=== PATIENT | female | born 1995 | race Caucasian/White ===

== ENCOUNTER 2023-02-04 11:43 | Emergency (ER) | payer OTHER, SELFPAY ==
[2023-02-04 11:47] VITALS: BP 111/70; PULSE 88; RESP 16; TEMP 37.3; O2SAT 98; BMI 28.1
[2023-02-04 12:11] LABS: Basophils Absolute Auto 0.1 10^3/uL (0.0-0.1); Basophils Percent Auto 0.6 % (0.2-2.0); Eosinophils Absolute Auto 0.2 10^3/uL (0.0-0.7); Eosinophils Percent Auto 1.7 % (0.9-7.0); Hematocrit 40.3 % (36.0-48.0); Hemoglobin 13.7 g/dL (12.0-16.0); Immature Granulocytes Abs Auto 0.03 10^3/uL (0.00-0.03); Immature Granulocytes Pct Auto 0.3 % (0.0-0.5); Lymphocytes Absolute Auto 2.3 10^3/uL (1.2-3.8); Lymphocytes Percent Auto 22.9 % (20.5-60.0); Mean Corpuscular Hemoglobin 31.8 pg (26.7-34.0); Mean Corpuscular Volume 93.5 fL (81.0-99.0); Mean Platelet Volume 9.4 fL (9.5-13.5); Monocytes Absolute Auto 0.6 10^3/uL (0.3-0.8); Monocytes Percent Auto 6.4 % (1.7-12.0); Neutrophils Absolute Auto 6.7 10^3/uL (1.4-6.5); Neutrophils Percent Auto 68.1 % (43.0-75.0); Platelet Count 286 10^3/uL (150-450); Red Blood Count 4.31 10^6/uL (4.20-5.40); Red Cell Distribution Width 11.8 % (11.0-15.0); White Blood Count 9.9 10^3/uL (4.0-11.0)
[2023-02-04] MEDS: MORPHINE SULFATE 2 MG/ML SYRINGE 1 MG IV ×2 (12:29→13:04)
[2023-02-04] MEDS: ONDANSETRON PF 4 MG/2 ML VIAL IV (12:30)
--- NOTE | 2023-02-04 12:33 | US_ITS ---
[address] [address] Patient Name: DENISE SMITH MRN: [id number] date: 1995 Sex: F Assigned Patient Location: ER Current Patient Location: ER Accession/Order Number: [id number] Exam Date: 02/04/2023 12:38 Report Date: 02/04/2023 13:28 At the request of: JOSHUA GUTHRIE Procedure: US OB transvaginal EXAMINATION: US OB transvaginal HISTORY: RLQ pain COMPARISON: No relevant comparison available. FINDINGS: Betancourt intrauterine gestation Gestational sac: 1.19 cm, 5 weeks 2 days CRL: 0.91 cm, 6 weeks and yolk sac: 2.7 mm Heart rate: 134 beats minute Uterus is normal, retroverted The right ovary measures 4.3 x 2.0 x 2.4 cm. Normal color and Doppler flow. Area of soft tissue echogenicity measuring 2.0 cm possibly a corpus luteal or functional cyst The left ovary measures 2.2 x 1.7 x 2.1 cm. Normal color and Doppler flow Clinical age: 7 weeks, 4 days EDV: 09/17/2023 Ultrasound age: 6 weeks 6 days Ultrasound LESTER: 09/24/2023 US/US OB transvaginal IMPRESSION: Viable betancourt intrauterine gestation measuring 6 weeks 6 days Electronically authenticated by: CRISTINO COOLEY Date: 02/04/2023 13:28
[2023-02-04 12:41] LABS: Alanine Aminotransferase 17 U/L (14-59); Albumin Globulin Ratio 1.1; Albumin Level 3.7 g/dL (3.4-5.0); Alkaline Phosphatase 73 U/L (46-116); Anion Gap 14.6; Aspartate Amino Transferase 11 U/L (15-37); BUN Creatinine Ratio 9.4; Bilirubin Total 0.5 mg/dL (0.2-1.0); Calcium 8.5 mg/dL (8.5-10.1); Carbon Dioxide 23.1 mmol/L (21.0-32.0); Chloride 102 mmol/L (98-107); Estimated GFR (African America >60 (>=60); Estimated GFR (Non-African Ame >60 (>=60); Globulin 3.5 g/dL; Glucose 95 mg/dL (74-106); Potassium 3.7 mmol/L (3.5-5.1); Sodium 136 mmol/L (136-145); Total Protein 7.2 g/dL (6.4-8.2)
--- NOTE | 2023-02-04 12:59 | ED.FEMALEGU1 ---
HPI - Female Genitourinary General Chief complaint: Urogenital-Female Stated complaint: ISSUES 7-8 WEEKS Time Seen by Provider: 02/04/23 11:53 Source: patient Mode of arrival: walk-in History of Present Illness HPI Narrative: The patient is a 27 years old female coming to the ER with a right lower quadrant pain associated with vaginal bleeding she just did a test almost 3 days ago and she has not been having her menstruation for the last 7 weeks, the patient has a 10 years old at home and that was her last that was normal vaginal She does have some nausea vomiting no other complaints As per the patient the vaginal bleeding was more than usual and that why she came to the ER Related Data Allergies Allergy/AdvReac Type Severity Reaction Status Date / Time No Known Drug Allergies Allergy Verified 02/04/23 11:52 Review of Systems ROS Status of ROS 10 or more systems reviewed and unremarkable except as noted in history and below Exam Narrative Exam Narrative: Nurses notes and vital signs reviewed and patient is not hypoxic. General: Well-appearing and in no apparent distress. Skin: Warm, dry, no pallor noted. No rash. Head: Normocephalic, atraumatic. Neck: Supple, non-tender. Eye: Pupils are equal, round and EOMI. No scleral icterus. Ears, Nose, Mouth, and Throat: TM are clear, no nasal mucosal hypertrophy. Oral mucosa is moist, no posterior oropharynx erythema, uvula is mid-line Cardiovascular: Regular Rate and Rhythm without murmur, gallop or rub. Respiratory: No accessory muscle use or respiratory distress. Lungs are clear to auscultation, no wheezing, rales or rhonchi Chest Wall: no tenderness Back: No midline thoracic or lumbar vertebral tenderness. No CVA tenderness Musculoskeletal: normal ROM, no calf or popliteal tenderness, no lower extremity edema/swelling GI: Abdomen is soft, non-distended. Normal bowel sounds. The right lower quadrant tenderness on the superficial palpation Neurological: A&O x4. No cranial nerve dysfunction observed. No truncal ataxia. Moves all extremities. Sensation intact. Psychiatric: Cooperative and interactive. Normal mood and affect. Constitutional Vital Signs, click to edit/add: Last Vital Signs Temp 99.2 F 02/04/23 11:47 Pulse 72 02/04/23 13:52 Resp 14 02/04/23 13:52 BP 115/70 02/04/23 13:52 Pulse Ox 98 02/04/23 13:52 O2 Del Method Room Air 02/04/23 13:52 Course Vital Signs Vital signs: Vital Signs Temperature 99.2 F 02/04/23 11:47 Pulse Rate 88 02/04/23 11:47 Respiratory Rate 16 02/04/23 11:47 Blood Pressure 111/70 02/04/23 11:47 Pulse Oximetry 98 02/04/23 11:47 Oxygen Delivery Method Room Air 02/04/23 11:47 Temperature 99.2 F 02/04/23 11:47 Pulse Rate 72 02/04/23 13:52 Respiratory Rate 14 02/04/23 13:52 Blood Pressure 115/70 02/04/23 13:52 Pulse Oximetry 98 02/04/23 13:52 Oxygen Delivery Method Room Air 02/04/23 13:52 MDM - Female Genitourinary MDM Narrative Medical decision making narrative: CBC and chemistry showed no acute significant pathology The patient ultrasound shows a right-sided ovarian cyst and the intrauterine that is 6 weeks which is correlating with the hCG results The patient ultrasound transvaginal and due to the patient to have more pain She was provided with morphine for the pain in the ER The patient on examination did not have positive McBurney I did explain to the patient that right now all the examination and her presentation is mostly secondary to the ovarian cyst and with the clinical exam and the blood work-up showing no signs of possible acute appendicitis the patient will not be exposed to radiation and she understand that but in case the pain continues in the next few hours the patient to come back to the ER The patient also to monitor her symptoms and in case of increasing bleeding she is to come back to the ER also avoid exertion and sexual encounters The patient is to follow up with primary care physician in next 2-3 days or to return to the emergency department should any of the signs or symptoms worsen or new symptoms develop. The patient agrees with the following Diagnosis and Treatment plan and the patient will be discharged home. Lab Data Labs: Lab Results 02/04/23 Range/Units 12:00 WBC 9.9 (4.0-11.0) 10^3/uL RBC 4.31 (4.20-5.40) 10^6/uL Hgb 13.7 (12.0-16.0) g/dL Hct 40.3 (36.0-48.0) % MCV 93.5 (81.0-99.0) fL MCH 31.8 (26.7-34.0) pg MCHC 34.0 (29.9-35.2) g/dL RDW 11.8 (11.0-15.0) % Plt Count 286 (150-450) 10^3/uL MPV 9.4 L (9.5-13.5) fL Neut % (Auto) 68.1 (43.0-75.0) % Lymph % (Auto) 22.9 (20.5-60.0) % Caldwell % (Auto) 6.4 (1.7-12.0) % Eos % (Auto) 1.7 (0.9-7.0) % Baso % (Auto) 0.6 (0.2-2.0) % Neut # (Auto) 6.7 H (1.4-6.5) 10^3/uL Lymph # (Auto) 2.3 (1.2-3.8) 10^3/uL Caldwell # (Auto) 0.6 (0.3-0.8) 10^3/uL Eos # (Auto) 0.2 (0.0-0.7) 10^3/uL Baso # (Auto) 0.1 (0.0-0.1) 10^3/uL Abs Immat Gran (auto) 0.03 (0.00-0.03) 10^3/uL Imm/Tot Granulo (auto) 0.3 (0.0-0.5) % Sodium 136 (136-145) mmol/L Potassium 3.7 (3.5-5.1) mmol/L Chloride 102 (98-107) mmol/L Carbon Dioxide 23.1 (21.0-32.0) mmol/L Anion Gap 14.6 BUN 6.0 L (7.0-18.0) mg/dL Creatinine 0.64 (0.55-1.02) mg/dL Est GFR ( Amer) >60 (>=60) Est GFR (Non-Af Amer) >60 (>=60) BUN/Creatinine Ratio 9.4 Glucose 95 (74-106) mg/dL Calcium 8.5 (8.5-10.1) mg/dL Total Bilirubin 0.5 (0.2-1.0) mg/dL AST 11 L (15-37) U/L ALT 17 (14-59) U/L Alkaline Phosphatase 73 (46-116) U/L Total Protein 7.2 (6.4-8.2) g/dL Albumin 3.7 (3.4-5.0) g/dL Globulin 3.5 g/dL Albumin/Globulin Ratio 1.1 HCG, Quant 98755 mIU/mL Blood Type O Positive Antibody Screen Negative Discharge Plan Discharge Chief Complaint: Urogenital-Female Clinical Impression: Vaginal bleeding during , Cyst of right ovary Patient Disposition: Home, Self-Care Time of Disposition Decision: 13:41 Condition: Good Mode of Transportation: Private Vehicle Instructions: Threatened Miscarriage (ED), Ovarian Cyst (ED) Stand Alone Forms: Portal Instructions Referrals: Physician,Non-Staff, MD [Primary Care Provider] - 1 week Discharge Date/Time: 02/04/23 13:50
[2023-02-04 13:22] LABS: HCG Quantitative 11446 mIU/mL
[2023-02-04 13:52] VITALS: BP 115/70; PULSE 72; RESP 14; O2SAT 98
== END 2023-02-04 13:50 | disposition home or self-care (01) ==
PROVIDERS: Emergency Provider Emergency Medicine
DX: O20.9 Hemorrhage in early pregnancy, unspecified (principal); O34.81 Maternal care for other abnormalities of pelvic organs, first trimester; N83.201 Unspecified ovarian cyst, right side; Z3A.01 Less than 8 weeks gestation of pregnancy
CPT/HCPCS: 36415; 76817; 80053; 84702; 84703; 85025; 86850; 86900; 86901; 96374; 96375; 96376; 99284

== ENCOUNTER 2024-09-27 15:12 | Emergency (ER) | payer OTHER, SELFPAY ==
[2024-09-27 15:16] VITALS: BP 131/88; PULSE 95; TEMP 37; O2SAT 98; BMI 29.2
--- NOTE | 2024-09-27 15:30 | ED.GENADUL1 ---
HPI HPI - General Adult General Chief complaint: Extremity Injury, Upper Stated complaint: BROKE FINGER TUESDAY, HAVING A LOT OF PAIN Time Seen by Provider: 09/27/24 15:16 Source: patient Mode of arrival: walk-in Limitations: no limitations History of Present Illness HPI narrative: 28-year-old female presents for left third finger pain. She broke it last week and has had an x-ray and has an orthopedist appointment in a few days. She has pain. She states she is , about 6 weeks and is scheduled to have an soon. The pain is moderate to severe. Related Data Previous Rx's ?Medication ?Instructions ?Recorded acetaminophen 300 mg-codeine 30 mg 1 tab PO Q6H PRN pain 5 days #20 09/27/24 tablet tabs Allergies Allergy/AdvReac Type Severity Reaction Status Date / Time No Known Drug Allergies Allergy Verified 09/27/24 15:16 Opioid HPI Opioid Management Most Recent Opioid Data: Last Pain Scale 5 Today, 15:16 Review of Systems ROS Narrative A ten point review of systems is negative except as noted above. PFSH PFSH Social History Little interest or pleasure in doing things: not at all Feeling down, depressed, or hopeless: not at all Exam Narrative Exam Narrative: Nurses note and vital signs reviewed and patient is not hypoxic. General: The patient appears well and in no apparent distress. Patient is resting comfortably on cart. Skin: Warm, dry, no pallor noted. There is no rash noted. Head: Normocephalic, atraumatic Eye: Normal conjunctiva, no drainage Ears, Nose, Mouth, and Throat: oral mucosa is moist. Nares patent. Cardiovascular: Regular Rate and Rhythm Respiratory: Patient is in no distress, no accessory muscle use Back: non-tender GI: Soft and nontender Musculoskeletal: Splint present on the left third finger. There is some swelling. Other fingers are nontender and have good range of motion Neurological: A&O, normal speech Psychiatric: Cooperative Constitutional Vital Signs, click to edit/add: Last Vital Signs Temp 98.6 F 09/27/24 15:16 Pulse 95 H 09/27/24 15:16 Resp 16 09/27/24 15:16 BP 131/88 09/27/24 15:16 Pulse Ox 98 09/27/24 15:16 O2 Del Method Room Air 09/27/24 15:16 Course Vital Signs Vital signs: Vital Signs Temperature 98.6 F 09/27/24 15:16 Pulse Rate 95 H 09/27/24 15:16 Respiratory Rate 16 09/27/24 15:16 Blood Pressure 131/88 09/27/24 15:16 Pulse Oximetry 98 09/27/24 15:16 Oxygen Delivery Method Room Air 09/27/24 15:16 Temperature 98.6 F 09/27/24 15:16 Pulse Rate 95 H 09/27/24 15:16 Respiratory Rate 16 09/27/24 15:16 Blood Pressure 131/88 09/27/24 15:16 Pulse Oximetry 98 09/27/24 15:16 Oxygen Delivery Method Room Air 09/27/24 15:16 Medical Decision Making MDM Narrative Medical decision making narrative: She was provided a prescription for Tylenol 3 and will follow-up with her orthopedist. Treatment diagnosis and follow-up were discussed with the patient. Differential Diagnosis Differential Diagnosis: Finger fracture, pain Discharge Plan Discharge Chief Complaint: Extremity Injury, Upper Clinical Impression: Finger fracture, left Patient Disposition: Home, Self-Care Time of Disposition Decision: 15:26 Condition: Good Mode of Transportation: Private Vehicle Prescriptions / Home Meds: New acetaminophen-codeine 300-30 mg tablet 1 tab PO Q6H PRN (Reason: pain) 5 Days Qty: 20 0RF Print Language: Albanian Instructions: Finger Fracture (ED) Additional Instructions: See your orthopedist at your appointment on Tuesday. Referrals: Physician,Non-Staff, MD [Primary Care Provider] - 1 week
== END 2024-09-27 15:40 | disposition home or self-care (01) ==
PROVIDERS: Emergency Provider Emergency Medicine
DX: O9A.211 Injury, poisoning and certain other consequences of external causes complicating pregnancy, first trimester (principal); S62.603A Fracture of unspecified phalanx of left middle finger, initial encounter for closed fracture; Z3A.01 Less than 8 weeks gestation of pregnancy; X58.XXXA Exposure to other specified factors, initial encounter
CPT/HCPCS: 99283

== ENCOUNTER 2025-01-18 20:49 | Emergency (ER) | payer OTHER, SELFPAY ==
--- OUTSIDE RECORDS SUMMARY | 2025-01-18 20:59 | XMS_ITS | CCD ---
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 Name Role Phone LEYDI SCALES~[phone] Unavailable Unavailable CHÁVEZ, BUDDHISM E Unavailable Unavailable CHÁVEZ, BUDDHISM E Unavailable Unavailable CHÁVEZ, BUDDHISM E Unavailable Unavailable JOSAFAT GUEVARA Unavailable Unavailable GHANSHYAM GALLO~[phone] Unavailable Jonelle vailable ARISTIDES BEAVERS Unavailable Unavailable ARISTIDES BEAVERS Unavailable Unavailable ARISTIDES BEAVERS Unavailable Unavailable DR TRINITY SPANGLER Consulting Unavailable REQUEST, NONE LISTED Primary Care Unavaila ble WINDY ESPINOZA Admitting Unavailable WINDY ESPINOZA Attending Unavailable WINDY ESPINOZA Consulting Unavailable CARLTON MERCADO Consulting Unavailable REQUEST, NONE LISTED Primary Care Unavaila ble WINDY ESPINOZA Attending Unavailable WINDY ESPINOZA Consulting Unavailable WINDY ESPINOZA Admitting Unavailable REQUEST, NONE LISTED Primary Care Unavaila ble WINDY ESPINOZA Admitting Unavailable WINDY ESPINOZA Attending Unavailable REQUEST, NONE LISTED Primary Care Unavaila ble WINDY ESPINOZA Admitting Unavailable WINDY ESPINOZA Attending Unavailable WINDY ESPINOZA Consulting Unavailable REQUEST, NONE LISTED Primary Care Unavaila ble YASIR, DR CRISTINO Andre Consulting Unavailable WINDY ESPINOZA Attending Unavailable WINDY ESPINOZA Admitting Unavailable WINDY ESPINOZA Consulting Unavailable DANIEL ESPINOZA Consulting Unavailable NO FAMILY, PHYSICIAN Primary Care Provider Unava ilable JOSIANE Mendoza Emergency Provider Junior Araujo Attending Unavailable Junior Araujo Admitting Unavailable NO FAMILY, PHYSICIAN Primary Care Unavailable Unavailable Primary Care Provider UnavailAristides Sims DO Unavailable [phone] MELBA NAVARRETE Attending Unavailable MELBA NAVARRETE Referring Unavailable POCCRISTINO HOBBS Referring Unavailable POCCRISTINO HOBBS Attending Unavailable ARISTIDES GOULD Referring Unavailable JENNIFER LONGORIA Attending Unavailable CRISTINO ROLON Referring Unavailable CRISTINO ROLON Referring Unavailable MARILYNN ALEJANDRE Attending Unavailable CRISTINO ROLON Attending Unavailable CRISTINO ROLON Referring Unavailable Allergies Allergy Classification Reported Allergen(s) Allergy Type Date of Onset Reaction(s) Facility peanut allergenic extract (1 source) peanut allergenic extract Drug Allergy [facility] Repository (2 sources) Adhesive Tape; Translations: [ADHESIVE TAPE] Propensity to adverse reactions to drug (disorder) 7 [facility] Repository (2 sources) peanut allergenic extract; Translations: [PEANUT] Drug Allergy 7 [facility] Repository Medications Current Medications Medication Drug Class(es) Dates Sig (Normalized) Sig (Original) azithromycin 250 mg oral tablet (2 sources) Macrolide Antimicrobial Start: 4 End: 4 take 2 tablets by mouth once daily, then take 1 tablet by mouth once daily azithromycin (Zithromax) 250 MG tablet Indications: Bronchitis Take 2 tablets (500 mg) by mouth Daily for 1 day, THEN 1 tablet (250 mg) Daily for 4 days. 6 tablet 03/08/2024 03/12/2024 Active methylPREDNISolone (2 sources) Corticosteroid Start: 4 End: 4 methylPREDNISolone (Medrol Dospak) 4 MG tablets Indications: Bronchitis Follow schedule on package instructions 21 tablet 03/08/2024 03/15/2024 Active Mehan (No Known Home Meds) (1 source) Start: 3 Mehan (No Known Home Meds) Active May 02, 2022 12:00am Completed/Discontinued Medications Medication Drug Class(es) Dates Sig (Normalized) Sig (Original) amoxicillin 500 mg oral capsule (1 source) Penicillin-class Antibacterial Start: 09-09-2019 End: 05-02-2022 take 500 mg by mouth twice daily Amoxicillin Discontinued 500 MG PO Twice daily 21 01September 08, 2019 11:00pm May 02, 2022 1:51pm cephalexin 750 mg oral capsule (1 source) Cephalosporin Antibacterial Start: 10-26-2020 End: 05-02-2022 take 1 capsule by mouth three times daily Cephalexin (Keflex) 750 mg Capsule Discontinued 750 MG PO Three times daily 22 10October 25, 2020 11:00pm May 02, 2022 1:51pm Etonogestrel (Nexplanon) 68 mg Implant (1 source) Start: 09-09-2019 End: 05-02-2022 Etonogestrel (Nexplanon) 68 mg Implant Discontinued 1 IMPLANT SUBDERMAL Once September 08, 2019 11:00pm May 02, 2022 1:51pm 2 ml ketorolac tromethamine 30 mg/ml cartridge (2 sources) Nonsteroidal Anti-inflammatory Drug, Cyclooxygenase Inhibitor Start: 09-24-2024 End: 09-24-2024 ketorolac (Toradol) injection 60 mg Problems Active Problems Problem Classification Problem Date Documented Da te Episodic/Chronic Abdominal pain (9 sources) Abdominal pain; Translations: [Right lower quadrant pain] Onset: 10-27-2016 Episodic Acquired foot deformities (15 sources) Hallux valgus (acquired), left foot; Translations: [Acquired hallux valgus] Onset: 04-09-2020 Chronic Acquired foot deformities (5 sources) Hallux valgus (acquired), right foot; Translations: [HALLUX VALGUS ACQUIRED RIGHT FOOT] Onset: 02-04-2020 Chronic Chronic kidney disease (2 sources) Chronic kidney disease Onset: 06-01-2017 Chronic obstructive pulmonary disease and bronchiectasis (2 sources) Bronchitis; Translations: [Bronchitis, not specified as acute or chronic] 03-08-2024 Episodic Fracture of upper limb (20 sources) Closed fracture of middle phalanx of middle finger; Translations: [Nondisplaced fracture of middle phalanx of left middle finger, initial encounter for closed fracture] Onset: 11-23-2024 09-25-2024 Episodic Menstrual disorders (10 sources) Irregular periods; Translations: [Irregular menstruation, unspecified] Onset: 03-08-2024 03-08-2024 Chronic Mood disorders (10 sources) Dysthymia; Translations: [Dysthymic disorder] Onset: 03-08-2024 03-08-2024 Chronic Other connective tissue disease (8 sources) Pain of left hand; Translations: [Pain in left hand] Onset: 11-23-2024 11-12-2024 Episodic Other connective tissue disease (2 sources) Pain in finger of left hand; Translations: [Pain in left finger(s)] 12-14-2024 Episodic Other injuries and conditions due to external causes (2 sources) Injury of left hand; Translations: [Unspecified injury of left wrist, hand and finger(s), initial encounter] 09-24-2024 Episodic Other nervous system disorders (1 source) Other chronic pain; Translations: [Other chronic pain] Onset: 06-01-2017 Chronic Other upper respiratory infections (3 sources) Acute upper respiratory infection, unspecified; Translations: [Pharyngitis] Onset: 02-13-2017 03-08-2024 Episodic Spontaneous (1 source) Incomplete spontaneous without complication; Translations: [Incomplete spontaneous without complication] Onset: 06-08-2023 Episodic Substance-related disorders (1 source) Nicotine dependence, cigarettes, uncomplicated; Translations: [NICOTINE DEPEND CIGARETTES UNCOMP] Onset: 04-17-2020 Chronic Unclassified (2 sources) Abdominal Pain / 1() Onset: 10-27-2016 Unclassified (2 sources) Unknown / UNK(Unknown) Onset: 10-27-2016 Unclassified (2 sources) Right lower quadrant pain / R10.31(ICD-10) Onset: 02-27-2017 Unclassified (1 source) Hematuria / 07213() Onset: 04-25-2017 Unclassified (1 source) Cough / 28() Onset: 02-13-2017 Unclassified (1 source) Right upper quadrant pain / R10.11(ICD-10) Onset: 10-27-2016 Unclassified (1 source) Unspecified ovarian cyst, left side / N83.202(ICD-10) Onset: 02-27-2017 Unclassified (1 source) Ear Pain / 89372() Onset: 02-13-2017 Unclassified (1 source) Congestion / 73952() Onset: 02-13-2017 Unclassified (1 source) Acute upper respiratory infection, unspecified / J06.9(ICD-10) Onset: 02-13-2017 Unclassified (1 source) Back Pain / 12() Onset: 02-27-2017 Unclassified (1 source) Encounter for screening for COVID-19; Translations: [Encounter for screening for COVID-19] Onset: 04-09-2020 Unclassified (2 sources) Injury of left hand 09-25-2024 Urinary tract infections (2 sources) Urinary tract infections; Translations: [Urinary tract infection, site not specified] Onset: 10-27-2016 Past or Other Problems Problem Classification Problem Date Documented Date Episodic/Chronic Disorders of teeth and jaw (11 sources) Toothache; Translations: [Other specified disorders of teeth and supporting structures] Onset: 03-08-2024 09-09-2019 Episodic Genitourinary symptoms and ill-defined conditions (1 source) Blood in urine; Translations: [Hematuria] Onset: 04-25-2017 Episodic Hemorrhage during ; abruptio placenta; placenta previa (11 sources) Bleeding from female genital tract during ; Translations: [Antepartum hemorrhage, unspecified, unspecified trimester] Onset: 03-08-2024 05-02-2022 Episodic Immunizations and screening for infectious disease (1 source) Contact with and (suspected) exposure to other viral communicable diseases; Translations: [CONTCT EXPS OTH VIRL COMMUNICABL DZ] Onset: 02-04-2020 Episodic Other diseases of veins and lymphatics (10 sources) Peripheral venous insufficiency; Translations: [Venous insufficiency (chronic) (peripheral)] Onset: 03-08-2024 03-08-2024 Episodic Other lower respiratory disease (1 source) Cough; Translations: [Cough] Onset: 02-13-2017 Episodic Residual codes; unclassified (10 sources) Insomnia; Translations: [Insomnia, unspecified] Onset: 03-08-2024 03-08-2024 Episodic Spondylosis; intervertebral disc disorders; other back problems (1 source) Backache; Translations: [Back Pain] Onset: 02-27-2017 Episodic Superficial injury; contusion (11 sources) Contusion of forearm; Translations: [Contusion of right forearm, initial encounter] Onset: 03-08-2024 11-17-2019 Episodic Unclassified (1 source) Unspecified ovarian cyst, left side; Translations: [Unspecified ovarian cyst, left side] Onset: 02-27-2017 Unclassified (1 source) Congestion; Translations: [Congestion] Onset: 02-13-2017 Unclassified (1 source) Ear Pain; Translations: [Ear Pain] Onset: 02-13-2017 Unclassified (1 source) right abdominal pain Onset: 10-27-2016 Results Test Name Value Interpretation Reference Range Facility XR Finger - left 2 [facility] 0 12-17-2024 Imaging Result: X-rays of the left middle finger , a total of 3 views with permanent images saved to the record, show the malunion at the base of the middle phalanx. There is collapse causing the persistent ulnar angulation at the PIP. No new or interval changes noted. [facility] XR Finger - left 2 [facility] 0 12-14-2024 Radiology Study observation (narrative) [facility] XR Hand - left 3 [facility] XR HAND 3+ VIEWS LEF T HISTORY: Injury to the left hand 3rd digit TECHNIQUE: Three views COMPARISON: None. FINDINGS: Soft tissue swelling is present, along dorsum of the left hand extending into the fingers mainly of the 3rd finger. The carpal bone alignment is anatomic; no intercarpal diastasis. No fracture. No osteonecrosis. No foreign body. Impression: Extensive soft tissue swelling of the left hand extending into the left 3rd finger. No acute underlying osseous/articular abnormality identified. Interpreted by: Electronically signed by JOE HENRY MD at 25-Sep-2024 12:37:41 AM [facility] Joe Henry MD - 09/25/2024 XR HAND 3+ VIEWS LEFT HISTORY: Injury to the left hand 3rd digit TECHNIQUE: Three views COMPARISON: None. FINDINGS: Soft tissue swelling is present, along dorsum of the left hand extending into the fingers mainly of the 3rd finger. The carpal bone alignment is anatomic; no intercarpal diastasis. No fracture. No osteonecrosis. No foreign body. Impression: Extensive soft tissue swelling of the left hand extending into the left 3rd finger. No acute underlying osseous/articular abnormality identified. Interpreted by: Electronically signed by JOE HENRY MD at 25-Sep-2024 12:37:41 AM [facility] XR Hand - left 3 ViewsOrdere d By: Joe Henry on 09-25-2024 [facility] Work Phone: HCG ( test) Ql (U)o n 09-24-2024 Interpretation and review of laboratory results Abnormal [facility] Preg Test, Ur Positive Negative [facility] No Panel Informationon 09-24 Umm Sharma MA 09/26/2024 6:54 PM Splint Application Date/Time: 09/24/2024 7:03 PM Performed by: Umm Sharma MA Authorized by: Melba Navarrete NP Consent: Consent obtained: Verbal Consent given by: Patient Risks discussed: Discoloration, numbness, pain and swelling [place] protocol: Patient identity confirmed: Verbally with patient Pre-procedure details: Distal perfusion: distal pulses strong Procedure details: Location: Finger Finger location: L long finger Supplies: Aluminum splint Post-procedure details: Distal perfusion: distal pulses strong Procedure completion: Tolerated well, no immediate complications Comments: (1) 2inch rebecca wrapped used [facility] XR HAND 3+ VIEWS LEFTon 09-03 XR HAND 3+ VIEWS LEFT XR HAND 3+ VIEWS L EFT HISTORY: Injury to the left hand 3rd digit TECHNIQUE: Three views COMPARISON: None. FINDINGS: Soft tissue swelling is present, along dorsum of the left hand extending into the fingers mainly of the 3rd finger. The carpal bone alignment is anatomic; no intercarpal diastasis. No fracture. No osteonecrosis. No foreign body. Impression: Extensive soft tissue swelling of the left hand extending into the left 3rd finger. No acute underlying osseous/articular abnormality identified. Interpreted by: Electronically signed by JOE HENRY MD at 25-Sep-2024 12:37:41 AM [facility] Normal Not Available XR Hand - left 3 [facility] Radiology Study observation (narrative) [facility] Laboratory - Microbiology an d Antimicrobial susceptibilityon 03-08-2024 SARS-CoV-2 (COVID-19) RNA MARCELINO+probe Ql (Unsp spec) Negative [facility] No Panel Informationon 03-08 FLU A Negative [facility] FLU B Negative [facility] Interpretation and review of laboratory results Normal [facility] S. pyogenes DNA MARCELINO+probe No m (Unsp spec)Ordered By: Marin Sharma on 03-08-2024 Interpretation and review of laboratory results Normal [facility] RESULT Negative Negative [facility] Basic Metabolic Panelon 03-0 Anion gap [Moles/Vol] 11.5 mmol/L Normal 6.0-15.0 [facility] Comment on above: Performed By: #### L IPASE, CBC, HEPATIC, HCGQNT, BMP #### [facility] [address] Calcium [Mass/Vol] 9.0 mg/dL Normal 8.6-10.3 [facility] Comment on above: Performed By: #### L IPASE, CBC, HEPATIC, HCGQNT, BMP #### [facility] [address] [place] [address] [place] Chloride [Moles/Vol] 106 mmol/L Normal 98-107 [facility] Comment on above: Performed By: #### L IPASE, CBC, HEPATIC, HCGQNT, BMP #### [facility] [address] CO2 [Moles/Vol] 23.2 mmol/L Normal 21.0-31.0 [facility] Comment on above: Performed By: #### L IPASE, CBC, HEPATIC, HCGQNT, BMP #### [facility] [address] Creatinine [Mass/Vol] 0.67 mg/dL Normal 0.60-1.20 [facility] Comment on above: Performed By: #### L IPASE, CBC, HEPATIC, HCGQNT, BMP #### [facility] [address] [place] [address] [place] Creatinine Clr Calc Pharmacy 124.16 [facility] Comment on above: Performed By: #### L IPASE, CBC, HEPATIC, HCGQNT, BMP #### [place] [address] [place] GFR/1.73 sq M.predicted MDRD (S/P/Bld) [Vol rate/Area] mL/min/{1.73_m2} [facility] Comment on above: Performed By: #### L IPASE, CBC, HEPATIC, HCGQNT, BMP #### [facility] [address] Glucose [Mass/Vol] 93 mg/dL Normal 70-100 [facility] Comment on above: Result Comment: [facility] Glucose Reference Range is dependent on time and content of last meal. Glucose of more than 200 mg/dL in a nonstressed, ambulatory subject supports the diagnosis of Diabetes Mellitus. ADA recommended reference range Performed By: #### L IPASE, CBC, HEPATIC, HCGQNT, BMP #### [facility] [address] [place] [address] Potassium [Moles/Vol] 3.7 mmol/L Normal 3.5-5.1 [facility] Comment on above: Performed By: #### L IPASE, CBC, HEPATIC, HCGQNT, BMP #### [facility] [address] Sodium [Moles/Vol] 137 mmol/L Normal 136-145 [facility] Comment on above: Performed By: #### L IPASE, CBC, HEPATIC, HCGQNT, BMP #### [facility] [address] [place] [address] Urea nitrogen [Mass/Vol] 4 mg/dL Low 7-25 [facility] Comment on above: Performed By: #### L IPASE, CBC, HEPATIC, HCGQNT, BMP #### [address] abdomen pelvis w conon CT abdomen pelvis w con [facility] Main [place] [address] [place] [address] CT Scan Report Signed Patient: Gina Burton MR#: [id number] 74 : 1995 Acct:[id number] Age/Sex: 27 / F ADM Date: 06/08/23 Loc: ER Room: Type: [facility] ER Attending Dr: Copies to: Junior Araujo DO Ordering Provider: Junior Araujo DO Date of Service: 06/08/23 CT/CT abdomen pelvis w con: Abdominal Pain CT Abdomen and Pelvis withcontrast TECHNIQUE: Axial imaging with 2-D reconstruction.90 cc of Isovue-300. The CT exam was performed using one or more the following dose reduction techniques: Automated exposure control, adjustment of the MA and/or Kv according to patient size, or use of the iterative reconstruction technique. COMPARISON: Pelvic ultrasound 06/08/2023 History: Severe abdominal pain. Nausea. LIMITATIONS: None LOWER THORAX Unremarkable LIVER: Unremarkable GALLBLADDER: No gallbladder abnormality identified. BILE DUCTS: No dilatation SPLEEN: Unremarkable PANCREAS: Unremarkable ADRENAL GLANDS: Unremarkable KIDNEYS:Right renal scarring. Small right renal cyst. Small right renal calcification. No hydronephrosis. AORTA: No abdominal aortic aneurysm identified. RETROPERITONEUM: No significant retroperitoneal abnormalities identified. MESENTERY:Unremarkable SMALL BOWEL: The small bowel loops are nondistended. APPENDIX: The appendix is normal. COLON: Unremarkable URINARY BLADDER: Urinary bladder is unremarkable. REPRODUCTIVE SYSTEM: Enlarged uterus deviated to the left. No pelvic mass seen. Adjacent adnexal structures. No free fluid. PNEUMOPERITONEUM: None PERITONEAL FLUID:None BONY STRUCTURES: Unremarkable ABDOMINAL WALL: Unremarkable CT/CT abdomen pelvis w con IMPRESSION: Prominent uterus. No visible pelvic mass or fluid. No hematoma. Impression dictated by: Guillermo Jefferson M.D.06/08/2023 2:49 PM Dictation Location: [place] [address] Transcribed By: [facility] 06/08/23 1449 Dictated By: Guillermo Jefferson DO 06/08/23 1437 Signed By: 06/08/23 1449 Normal [facility] Complete Blood Count Auto Di ffon 06-08-2023 Basophils (Bld) [#/Vol] 0.1 10*3/uL Normal 0.0-0.2 [facility] Comment on above: Result Comment: PERF ORMED BY: [place] [address] PATHOLOGIST HAND WEAVER ALYX HURD M.D. Performed By: #### L IPASE, CBC, HEPATIC, HCGQNT, BMP #### [facility] [address] [place] [address] Basophils/100 WBC (Bld) 0.4 % Normal . F [facility] Comment on above: Performed By: #### L IPASE, CBC, HEPATIC, HCGQNT, BMP #### [facility] [address] Eosinophils (Bld) [#/Vol] 0.1 10*3/uL Normal 0.0-0.45 [facility] Comment on above: Performed By: #### L IPASE, CBC, HEPATIC, HCGQNT, BMP #### [address] Eosinophils/100 WBC (Bld) 0.7 % Normal . [facility] Comment on above: Performed By: #### L IPASE, CBC, HEPATIC, HCGQNT, BMP #### [address] Erythrocyte distribution width (RBC) [Ratio] 13.2 % Normal 11.9-15.3 [facility] Comment on above: Performed By: #### L IPASE, CBC, HEPATIC, HCGQNT, BMP #### [address] Hematocrit (Bld) [Volume fraction] 40.9 % Normal 34.0-46.4 [facility] Comment on above: Performed By: #### L IPASE, CBC, HEPATIC, HCGQNT, BMP #### [address] Hemoglobin (Bld) [Mass/Vol] 13.9 g/dL Normal 11.8-15.4 [facility] Comment on above: Performed By: #### L IPASE, CBC, HEPATIC, HCGQNT, BMP #### [address] Lymphocytes (Bld) [#/Vol] 1.8 10*3/uL Normal 1.00-4.8 [facility] Comment on above: Performed By: #### L IPASE, CBC, HEPATIC, HCGQNT, BMP #### [address] Lymphocytes/100 WBC (Bld) 13.9 % Normal . [facility] Comment on above: Performed By: #### L IPASE, CBC, HEPATIC, HCGQNT, BMP #### [address] MCH (RBC) [Entitic mass] 31.5 pg Normal 24.7-34.3 [facility] Comment on above: Performed By: #### L IPASE, CBC, HEPATIC, HCGQNT, BMP #### [place] [id number] [place] MCV (RBC) [Entitic vol] 93.0 fL Normal 80-100 F [facility] Comment on above: Performed By: #### L IPASE, CBC, HEPATIC, HCGQNT, BMP #### [address] Mean Corpuscular HGB Conc 33.9 g/dL Normal 32.0-35.0 [facility] Comment on above: Performed By: #### L IPASE, CBC, HEPATIC, HCGQNT, BMP #### [address] Monocytes (Bld) [#/Vol] 0.7 10*3/uL Normal 0.0-0.8 [facility] Comment on above: Performed By: #### L IPASE, CBC, HEPATIC, HCGQNT, BMP #### [address] Monocytes/100 WBC (Bld) 18.94 % Normal 0.00-20.00 F [facility] Comment on above: Performed By: #### L IPASE, CBC, HEPATIC, HCGQNT, BMP #### [address] Monocytes/100 WBC (Bld) 5.7 % Normal . [facility] Comment on above: Performed By: #### L IPASE, CBC, HEPATIC, HCGQNT, BMP #### [place] [address] [place] Neutrophils (Bld) [#/Vol] 10.3 10*3/uL High 1.8-7.7 [facility] Comment on above: Performed By: #### L IPASE, CBC, HEPATIC, HCGQNT, BMP #### [address] Neutrophils/100 WBC (Bld) 79.3 % Normal . [facility] Comment on above: Performed By: #### L IPASE, CBC, HEPATIC, HCGQNT, BMP #### [place] [address] [place] NRBC% 0.0 /100{WBC} Normal 0-0.5 [facility] Comment on above: Performed By: #### L IPASE, CBC, HEPATIC, HCGQNT, BMP #### [address] Platelet mean volume (Bld) [Entitic vol] 7.9 fL Normal 6.3-10.7 [facility] Comment on above: Performed By: #### L IPASE, CBC, HEPATIC, HCGQNT, BMP #### [address] Platelets (Bld) [#/Vol] 252 10*3/uL Normal 150-450 [facility] Comment on above: Performed By: #### L IPASE, CBC, HEPATIC, HCGQNT, BMP #### [address] RBC (Bld) [#/Vol] 4.40 10*6/uL Normal 3.60-5.00 [facility] Comment on above: Performed By: #### L IPASE, CBC, HEPATIC, HCGQNT, BMP #### [address] WBC (Bld) [#/Vol] 13.0 10*3/uL High 3.8-11.6 [facility] Comment on above: Performed By: #### L IPASE, CBC, HEPATIC, HCGQNT, BMP #### [address] Dipstick and Microscopicon 0 06-08-2023 Appearance (U) Turbid Critically abnormal Clear [facility] Comment on above: Order Comment: Name Collection Type:: Clean-Voided Midstream Performed By: #### A AZUL CHOUDHARY UHCG #### [address] Bacteria,Urine 2+ High None Seen [facility] Comment on above: Order Comment: Name Collection Type:: Clean-Voided Midstream Performed By: #### A AZUL CHOUDHARY UHCG #### [facility] [address] [place] [address] [place] Bilirubin,Urine Negative Normal Negative [facility] Comment on above: Order Comment: Name Collection Type:: Clean-Voided Midstream Performed By: #### A DDONUAPLUS, CUU, UHCG #### [facility] [address] Color (U) Red Critically abnormal Yellow [facility] Comment on above: Order Comment: Name Collection Type:: Clean-Voided Midstream Performed By: #### A DDONUAPLUS, CUU, UHCG #### [facility] [address] [place] [address] Glucose Ql (U) Normal Normal Normal [facility] Comment on above: Order Comment: Name Collection Type:: Clean-Voided Midstream Performed By: #### A DDONUAPLUS, CUU, UHCG #### [facility] [address] [place] [address] [place] Hyaline Casts,Urine None Seen Normal 0-8 [facility] Comment on above: Order Comment: Name Collection Type:: Clean-Voided Midstream Performed By: #### A DDONUAPLUS, CUU, UHCG #### [facility] [address] [place] [address] [place] Ketones Ql (U) Negative Normal Negative [facility] Comment on above: Order Comment: Name Collection Type:: Clean-Voided Midstream Performed By: #### A DDONUAPLUS, CUU, UHCG #### [facility] [address] [place] [address] [place] Leukocyte esterase Test strip Ql (U) 4+ High Negative [facility] Comment on above: Order Comment: Name Collection Type:: Clean-Voided Midstream Performed By: #### A DDONUAPLUS, CUU, UHCG #### [facility] [address] [place] [address] [place] Nitrite,Urine Negative Normal Negative [facility] Comment on above: Order Comment: Name Collection Type:: Clean-Voided Midstream Performed By: #### A DDONUAPLUS, CUU, UHCG #### [facility] [address] [place] [address] Occult Blood,Urine 3+ High Negative [facility] Comment on above: Order Comment: Name Collection Type:: Clean-Voided Midstream Performed By: #### A DDONUAPLUS, CUU, UHCG #### [address] Other [place],Urine None Seen Normal None Seen [facility] Comment on above: Order Comment: Name Collection Type:: Clean-Voided Midstream Performed By: #### A DDONUAPLUS, CUU, UHCG #### [address] pH (U) 6.0 [pH] Normal 5.0-9.0 [facility] Comment on above: Order Comment: Name Collection Type:: Clean-Voided Midstream Performed By: #### A DDONUAPLUS, CUU, UHCG #### [address] Protein (U) [Mass/Vol] 100 mg/dL High Negative [facility] Comment on above: Order Comment: Name Collection Type:: Clean-Voided Midstream Performed By: #### A DDONUAPLUS, CUU, UHCG #### [facility] [address] [place] [address] RBC,Urine Innumerable High 0-4 [facility] Comment on above: Order Comment: Name Collection Type:: Clean-Voided Midstream Performed By: #### A DDONUAPLUS, CUU, UHCG #### [facility] [address] [place] [address] Specificy [place],Urine 1.012 Normal 1.001-1.030 [facility] Comment on above: Order Comment: Name Collection Type:: Clean-Voided Midstream Performed By: #### A DDONUAPLUS, CUU, UHCG #### [place] [address] [place] Squamous Epithelial Cell,Urine 20-30 High 0-2 [facility] Comment on above: Order Comment: Name Collection Type:: Clean-Voided Midstream Performed By: #### A DDONUAPLUS, CUU, UHCG #### [address] Urobilinogen,Urine Normal Normal Normal [facility] Comment on above: Order Comment: Name Collection Type:: Clean-Voided Midstream Performed By: #### A DDONUAPLUS, CUU, UHCG #### [address] WBC,Urine Innumerable High 0-4 [facility] Comment on above: Order Comment: Name Collection Type:: Clean-Voided Midstream Performed By: #### A DDONUAPLUS, CUU, UHCG #### [address] Yeast,Urine None Seen Normal None Seen [facility] Comment on above: Order Comment: Name Collection Type:: Clean-Voided Midstream Performed By: #### A DDONUAPLUS, CUU, UHCG #### [address] HCG,Quantitativeon HCG,Quantitative 1651.00 m[iU]/mL Normal [facility] Comment on above: Result Comment: Appr oximate Approximate hCG Gestational Age Range (mIU/ml) (weeks) 0.2-1 5-50 1-2 50-500 2-3 100-5,000 3-4 500-10,000 4-5 1,000-50,000 5-6 10,000-100,000 6-8 15,000-200,000 8-12 10,000-100,000 PERFORMED BY: [place] [address] PATHOLOGIST HAND WEAVER ALYX HURD M.D. Performed By: #### A DDONUAPLUS, CUU, UHCG #### [address] HCG,Urineon 06-08-2023 Beta HCG ( test) Ql (U) Positive High [facility] Comment on above: Order Comment: Name Collection Type:: Clean-Voided Midstream Result Comment: PERF ORMED BY: [place] [address] PATHOLOGIST HAND WEAVER ALYX HURD M.D. Performed By: #### A AZUL CHOUDHARY, [facility] #### [address] Hepatic Panelon 06-08-2023 Albumin [Mass/Vol] 4.2 g/dL Normal 3.5-5.7 [facility] Comment on above: Performed By: #### L IPASE, CBC, HEPATIC, HCGQNT, BMP #### [address] Albumin/Globulin [Mass ratio] 1.3 {ratio} Normal [facility] Comment on above: Performed By: #### L IPASE, CBC, HEPATIC, HCGQNT, BMP #### [address] ALP [Catalytic activity/Vol] 77 U/L Normal 34-104 [facility] Comment on above: Performed By: #### L IPASE, CBC, HEPATIC, HCGQNT, BMP #### [address] ALT [Catalytic activity/Vol] 8 U/L Normal 7-52 [facility] Comment on above: Performed By: #### L IPASE, CBC, HEPATIC, HCGQNT, BMP #### [place] [address] [place] AST [Catalytic activity/Vol] 12 U/L Low 13-39 [facility] Comment on above: Performed By: #### L IPASE, CBC, HEPATIC, HCGQNT, BMP #### [place] [address] [place] Bilirubin [Mass/Vol] 0.9 mg/dL Normal 0.3-1.0 [facility] Comment on above: Performed By: #### L IPASE, CBC, HEPATIC, HCGQNT, BMP #### [facility] [address] Bilirubin,Indirect 0.7 mg/dL Normal [facility] Comment on above: Performed By: #### L IPASE, CBC, HEPATIC, HCGQNT, BMP #### [facility] [address] Bilirubin.indirect [Mass/Vol] 0.20 mg/dL High 0.03-0.18 [facility] Comment on above: Performed By: #### L IPASE, CBC, HEPATIC, HCGQNT, BMP #### [facility] [address] Globulin (S) [Mass/Vol] 3.2 g/dL Normal F [facility] Comment on above: Performed By: #### L IPASE, CBC, HEPATIC, HCGQNT, BMP #### [address] Protein [Mass/Vol] 7.4 g/dL Normal 6.4-8.9 [facility] Comment on above: Performed By: #### L IPASE, CBC, HEPATIC, HCGQNT, BMP #### [facility] [address] [place] [address] Lipaseon 06-08-2023 Lipase [Catalytic activity/Vol] U/L Low 11.0-82.0 [facility] Comment on above: Performed By: #### L IPASE, [place], HEPATIC, HCGQNT, BMP #### [facility] [address] [place] [address] Type and Screenon 06-08-2023 ABO and Rh group Nom (Bld) Blood group O Rh(D) positive Normal [facility] Comment on above: Order Comment: Speci men obtained @ 1044 QNS and hemolyzed. Notified Vanessa in ER @ 1134. MLG Result Comment: PERF ORMED BY: [place] [address] PATHOLOGIST HAND WEAVER ALYX HURD M.D. transvaginalon 06-08-2023 transvaginal [facility] Main [place] [address] [place], [place] [id number] Ultrasound Report Signed Patient: Gina Burton MR#: [id number] 74 : 1995 Acct:[id number] Age/Sex: 27 / F ADM Date: 06/08/23 Loc: ER Room: Type: [facility] ER Attending Dr: Ordering Provider: Junior Araujo DO Date of Service: 06/08/23 US/US pelvic complete: ABDOMINAL PAIN ([id number]) US/US transvaginal: pain Copies to: Junior Araujo DO TRANSABDOMINAL AND TRANSVAGINAL PELVIC ULTRASOUND HISTORY: Worsening abdominal pain. Left inferior and nausea. Ingested pill. 9 Weeks . FINDINGS: The uterus measures 10.1 x 5.5 x 5.7 cm. No uterine lesion identified. The endometrium has a total combined thickness of 14mm. Heterogeneous appearance. Heterogeneous material identified in the cervix. May represent retained products. The RIGHT ovary measures 3.8 x 1.4 x 1.4 cm LEFT ovary not visualized. Bilateral ovarian blood flow identified. No free fluid identified. There is no adnexal mass identified. US/US pelvic complete IMPRESSION: No free fluid. No adnexal mass. Limited assessment of left ovary. Unremarkable right ovary. Heterogeneous 14 mm thick endometrial complex with potential for retained products. Impression dictated by: Guillermo Jefferson M.D.06/08/2023 1:27 PM Dictation Location: [place] [address] Tech: Patricia Adame Transcribed By: DIAZ 06/08/23 1327 Dictated By: Guillermo Jefferson DO 06/08/23 1321 Signed By: 06/08/23 1327 [facility] Urine Cultureon 06-08-2023 Bacteria identified Cx Nom (U) 50,000 colonies/ml mixed bacterial skin contaminants 2 Days PERFORMED BY: [address] [place] [id number] PATHOLOGIST HAND WEAVER ALYX HURD M.D. [facility] Comment on above: Performed By: #### A AZUL CHOUDHARY UHCG #### [place] [id number] [facility] Automated erythrocytes count in urine sediment (number/area)Ordered By: Kajal Mendoza on 05-02-2022 RBC Auto (Urine sed) [#/Area] None seen [HPF] 0-4 [facility] Automated leukocytes count i n urine sediment (number/area)Ordered By: Kajal Mendoza on 05-02-2022 WBC Auto (Urine sed) [#/Area] 5-9 [HPF] 0-4 [facility] Basophils Auto (Bld) [#/Vol] Ordered By: Kajal Mendoza on 05-02-2022 Basophils (Bld) [#/Vol] 0.1 10*3/uL 0.0-0.2 [facility] Basophils/100 WBC Auto (Bld) Ordered By: Kajal Mendoza on 05-02-2022 Basophils/100 WBC (Bld) 0.8 % . F [facility] Bilirubin Test strip Ql (U)O rdered By: Kajal Mendoza on 05-02-2022 Bilirubin Ql (U) Negative Negative [facility] Color Auto (U)Ordered By: Rufino Mendoza on 05-02-2022 Color (U) Swisher Yellow [facility] Creatinine and Glomerular fi ltration rate.predicted panel (S/P/Bld)Ordered By: Kajal Mendoza on 05-02-2022 Creatinine [Mass/Vol] 0.81 mg/dL 0.44-1.03 [facility] Eosinophils Auto (Bld) [#/Vo l]Ordered By: Kajal Mendoza on 05-02-2022 Eosinophils (Bld) [#/Vol] 0.1 10*3/uL 0.0-0.45 [facility] Eosinophils/100 WBC Auto (Bl d)Ordered By: Kajal Mendoza on 05-02-2022 Eosinophils/100 WBC (Bld) 1.1 % . [facility] Erythrocyte distribution wid th Auto (RBC) [Ratio]Ordered By: Kajal Mendoza on 05-02-2022 Erythrocyte distribution width (RBC) [Ratio] 12.8 % 11.9-15.3 [facility] Estimated glomerular filtrat ion rate (GFR) non- AmericanOrdered By: Kajal Mendoza on 05-02-2022 GFR/1.73 sq M.predicted among non-blacks MDRD (S/P/Bld) [Vol rate/Area] > 60 mL/Min [facility] HCG ( test) IA.rapi d Ql (U)Ordered By: Kajal Mendoza on 05-02-2022 HCG ( test) Ql (U) Positive [facility] Hematocrit Auto (Bld) [Volum e fraction]Ordered By: Kajal Mendoza on 05-02-2022 Hematocrit (Bld) [Volume fraction] 41.4 % 34.0-46.4 [facility] Hemoglobin [Mass/volume] in BloodOrdered By: Kajal Mendoza on 05-02-2022 Hemoglobin (Bld) [Mass/Vol] 14.1 g/dL 11.8-15.4 [facility] Ketones Auto test strip (U) [Mass/Vol]Ordered By: Kajal Mendoza on 05-02-2022 Ketones (U) [Mass/Vol] Negative Negative [facility] - UrinalysisOrder ed By: Kajal Mendoza on 05-02-2022 Hyaline casts LM Ql (Urine sed) 0-8 [LPF] 0-8 [facility] Leukocytes [#/volume] correc marley for nucleated erythrocytes in Blood by Automated counOrdered By: Kajal Mendoza on 05-02-2022 WBC corrected for nucl RBC Auto (Bld) [#/Vol] 9.4 10*3/uL 3.8-11.6 [facility] Lymphocytes Auto (Bld) [#/Vo l]Ordered By: Kajal Mendoza on 05-02-2022 Lymphocytes (Bld) [#/Vol] 2.1 10*3/uL 1.00-4.8 [facility] Lymphocytes/100 WBC Auto (Bl d)Ordered By: Kajal Mendoza on 05-02-2022 Lymphocytes/100 WBC (Bld) 21.9 % . [facility] MCH Auto (RBC) [Entitic mass ]Ordered By: Kajal Mendoza on 05-02-2022 MCH (RBC) [Entitic mass] 32.3 pg 24.7-34.3 [facility] MCHC Auto (RBC) [Mass/Vol]Or dered By: Kajal Mendoza on 05-02-2022 MCHC (RBC) [Mass/Vol] 34.0 g/dL 32.0-35.0 [facility] MCV Auto (RBC) [Entitic vol] Ordered By: Kajal Mendoza on 05-02-2022 MCV (RBC) [Entitic vol] 95.0 fL 80-100 F [facility] Monocytes Auto (Bld) [#/Vol] Ordered By: Kajal Mendoza on 05-02-2022 Monocytes (Bld) [#/Vol] 0.7 10*3/uL 0.0-0.8 [facility] Monocytes/100 WBC Auto (Bld) Ordered By: Kajal Mendoza on 05-02-2022 Monocytes/100 WBC (Bld) 7.3 % . F [facility] Neutrophils Auto (Bld) [#/Vo l]Ordered By: Kajal Mendoza on 05-02-2022 Neutrophils (Bld) [#/Vol] 6.5 10*3/uL 1.8-7.7 [facility] Neutrophils/100 WBC Auto (Bl d)Ordered By: Kajal Mendoza on 05-02-2022 Neutrophils/100 WBC (Bld) 68.9 % . [facility] Nitrite Test strip Ql (U)Ord ered By: Kajal Mendoza on 05-02-2022 Nitrite Ql (U) Negative Negative [facility] No Panel InformationOrdered By: Kajal Mendoza on 05-02-2022 Estimated GFR () > 60 mL/Min [facility] Comment on above: GFR estimated refere nce range: According to KDOQI guidelines, <60 ml/min/1.73m2 is sufficient to diagnose a patient with chronic kidney disease. Pharmacy Creatinine Clearance (Chem 101.69 [facility] Nucleated erythrocytes [Pres ence] in Blood by Automated countOrdered By: Kajal Mendoza on 05-02-2022 Nucleated RBC Auto Ql (Bld) 0.1 /100{WBC} 0-0.5 [facility] Platelet mean volume Auto (B ld) [Entitic vol]Ordered By: Kajal Mendoza on 05-02-2022 Platelet mean volume (Bld) [Entitic vol] 7.3 fL 6.3-10.7 [facility] Platelets Auto (Bld) [#/Vol] Ordered By: Kajal Mendoza on 05-02-2022 Platelets (Bld) [#/Vol] 302 10*3/uL 150-450 [facility] Protein Auto test strip (U) [Mass/Vol]Ordered By: Kajal Mendoza on 05-02-2022 Protein (U) [Mass/Vol] Negative Negative Fi [facility] [place] RBC Auto (Bld) [#/Vol]Ordere d By: Kajal Mendoza on 05-02-2022 RBC (Bld) [#/Vol] 4.36 10*6/uL 3.60-5.00 [facility] Serum or plasma anion gap de terminationOrdered By: Kajal Mendoza on 05-02-2022 Anion gap [Moles/Vol] 12.0 mmol/L 6.0-15.0 Fi [facility] [place] Serum or plasma beta choriog onadotropin measurement (units/volume)Ordered By: Kajal Mendoza on 05-02-2022 [place] [address].00 m[IU]/mL [facility] Comment on above: Approximate Approxim ate hCG Gestational Age Range (mIU/ml) (weeks)0.2-1 5-50 1-2 50-500 2-3 100-5,000 3-4 500-10,000 4-5 1,000-50,000 5-6 10,000-100,000 6-8 15,000-200,000 8-12 10,000-100,000 Serum or plasma calcium isac urement (mass/volume)Ordered By: Kajal Mendoza on 05-02-2022 Calcium [Mass/Vol] 9.4 mg/dL 8.2-10.2 [facility] Serum or plasma chloride cecy surement (moles/volume)Ordered By: Kajal Mendoza on 05-02-2022 Chloride [Moles/Vol] 102 mmol/L 95-114 [facility] Serum or plasma glucose isac urement (mass/volume)Ordered By: Kajal Mendoza on 05-02-2022 Glucose [Mass/Vol] 97 mg/dL 70-100 [facility] Comment on above: ADA recommended refe rence rangeRandom Glucose Reference Range is dependent on time and content of last meal. Glucose of more than 200 mg/dL in a nonstressed, ambulatory subject supports the diagnosis of Diabetes Mellitus. Serum or plasma potassium me asurement (moles/volume)Ordered By: Kajal Mendoza on 05-02-2022 Potassium [Moles/Vol] 3.6 mmol/L 3.5-5.1 [facility] Serum or plasma sodium measu rement (moles/volume)Ordered By: Kajal Mendoza on 05-02-2022 Sodium [Moles/Vol] 135 mmol/L 136-146 [facility] Serum or plasma total carbon dioxide measurement (moles/volume)Ordered By: Kajal Mendoza on 05-02-2022 CO2 [Moles/Vol] 24.6 mmol/L 22.0-30.0 [facility] Serum or plasma urea nitroge n measurement (mass/volume)Ordered By: Kajal Mendoza on 05-02-2022 Urea nitrogen [Mass/Vol] 5 mg/dL 9-23 [facility] Specific gravity Auto test s trip (U) [Rel density]Ordered By: Kajal Mendoza on 05-02-2022 Specific gravity (U) [Rel density] 1.008 1.001-1.030 [facility] Squamous epithelial cells de tection in urine sediment by light microscopyOrdered By: Kajal Mendoza on 05-02-2022 Epithelial cells.squamous LM Ql (Urine sed) 5-9 [HPF] 0-2 [facility] Urine bacteria detection by automated methodOrdered By: Kajal Mendoza on 05-02-2022 Bacteria Auto Ql (U) None seen None Seen [facility] Urine clarity by refractomet ry automatedOrdered By: Kajal Mendoza on 05-02-2022 Clarity Refractometry automated (U) Clear Clear [facility] Urine glucose measurement by automated test strip (mass/volume)Ordered By: Kajal Mendoza on 05-02-2022 Glucose Auto test strip (U) [Mass/Vol] Normal mg/dL Normal [facility] Urine hemoglobin detection b y automated test stripOrdered By: Kajal Mendoza on 05-02-2022 Hemoglobin Auto test strip Ql (U) Trace Negative [facility] Urine leukocyte esterase det ection by automated test stripOrdered By: Kajal Kelly on 05-02-2022 Leukocyte esterase Auto test strip Ql (U) 2+ Negative [facility] Urobilinogen Auto test strip (U) [Mass/Vol]Ordered By: Kajal Mendoza on 05-02-2022 Urobilinogen (U) [Mass/Vol] Normal mg/dL Normal [facility] WBC Auto (Bld) [#/Vol]Ordere d By: Kajal Mendoza on 05-02-2022 WBC (Bld) [#/Vol] 9.4 10*3/uL 3.8-11.6 [facility] pH Auto test strip (U)Ordere d By: Kajal Mendoza on 05-02-2022 pH (U) 5.5 [pH] 5.0-9.0 [facility] PREG HCG QUALon 04-09-2020 , QUAL Negative Normal NEGATIVE [facility] Comment on above: Performed By: #### P REG #### [facility] [address] [place] [address] Delilah [place] Covid-19 PCR (CVDTBH)on EUA Statement SEE BELOW Normal [facility] Comment on above: Result Comment: This test is not yet approved or cleared by the [place] FDA. When there are no FDA-approved or cleared tests available, and other criteria are met, FDA can make tests available under an emergency access mechanism called an Emergency Use Authorization (EUA). The EUA for this test is supported by the [place] of Health and Human Service?s (HHS?s) declaration that circumstances exist to justify the emergency use of in vitro diagnostics for the detection and/or diagnosis of the virus that causes COVID-19. This EUA will remain in effect (meaning this test can be used) for the duration of the COVID-19 declaration justifying emergency of IVDs, unless it is terminated or revoked by FDA (after which the test may no longer be used). When diagnostic testing is negative, the possibility of a false negative should be considered in the context of a patients recent exposures and the presence of clinical signs and symptoms consistent with SARS-CoV-2. Performed By: #### C VDTBH #### [facility] [address] [place] [address] Delilah [place] SARS-CoV-2 (COVID-19) RNA MARCELINO+probe Ql (Unsp spec) Not detected Normal NOT DETECTED [facility] Comment on above: Result Comment: This test is not yet approved or cleared by the [place] FDA. When there are no FDA-approved or cleared tests available, and other criteria are met, FDA can make tests available under an emergency access mechanism called an Emergency Use Authorization (EUA). The EUA for this test is supported by the [place] of Health and Human Service's (HHS's) declaration that circumstances exist to justify the emergency use of in vitro diagnostics for the detection and/or diagnosis of the virus that causes COVID-19. This EUA will remain in effect (meaning this test can be used) for the duration of the COVID-19 declaration justifying emergency of IVDs, unless it is terminated or revoked by FDA (after which the test may no longer be used). Performed By: #### C VDTB #### [facility] [address] [place] [address] Delilah [place] PREG HCG QUALon 02-06-2020 , QUAL Negative Normal NEGATIVE [facility] Comment on above: Performed By: #### P REG #### [facility] [address] [place] [address] Delilah [place] COVID-19 PCRon 02-01-2020 SARS-CoV-2 (COVID-19) RNA MARCELINO+probe Ql (Unsp spec) Not detected Normal Not Detected [facility] Comment on above: Result Comment: This nucleic acid amplification test was developed and its performance characteristics determined by [employer]. Nucleic acid amplification tests include PCR and TMA. This test has not been FDA cleared or approved. This test has been authorized by FDA under an Emergency Use Authorization (EUA). This test is only authorized for the duration of time the declaration that circumstances exist justifying the authorization of the emergency use of in vitro diagnostic tests for detection of SARS-CoV-2 virus and/or diagnosis of COVID-19 infection under section 564(b)(1) of the Act, 21 U.S.C. 360bbb-3(b) (1), unless the authorization is terminated or revoked sooner. When diagnostic testing is negative, the possibility of a false negative result should be considered in the context of a patient's recent exposures and the presence of clinical signs and symptoms consistent with COVID-19. An individual without symptoms of COVID-19 and who is not shedding SARS-CoV-2 virus would expect to have a negative (not detected) result in this assay. Performed By: #### C VDPCR, CVDSTAT #### [facility] [address] [place], [place] [address] Delilah Hudson PRIORITY COVID PROCESSINGon 02-01-2020 Comment Comment Normal [facility] Comment on above: Result Comment: Rece ived Performed By: #### C VDPCR, CVDSTAT #### [facility] [address] [place], [place] [address] Delilah Hudson ED Provider Noteson 07-11-19 ED Provider Notes Encounter Department : [facility] ED Provider Notes by MACK Gomez at 07/09/2018 11:14 PM Author: MACK GomezService: ?Author Type: Nurse Practitioner Filed: 07/09/2018 11:47 PMDate of Service: 07/09/2018 11:14 PMStatus: Signed Diamond Wheel Molder: MACK Gomez (Nurse Practitioner) CHIEF COMPLAINT Chief Complaint Patient presents with -Dental Pain HPI Gina Burton is a 22 y.o. female who presents with dental pain of her left upper and lower wisdom teeth that are emerging. Pain is throbbing and moderate to severe. Pain worse with chewing.Pain has gotten worse over the past 3 weeks. No fever, chills. She has dental appointment in 2 weeks. She has been using Ibuprofen for pain No other associated concerns REVIEW OF SYSTEMS Review of Systems Constitutional: Negative. HENT: Negative. Eyes: Negative. Respiratory: Negative. Cardiovascular: Negative. Gastrointestinal: Negative. Genitourinary: Negative. Musculoskeletal: Negative. Skin: Negative. Neurological: Negative. Endo/Heme/Allergies: Negative. Psychiatric/Behavioral : Negative. See HPI for further details. Review of systems otherwise negative. PAST MEDICAL HISTORY Past Medical History: DiagnosisDate -Abnormal Pap smear of cervix -Chicken pox -Hx of tonsillectomy -Renal and urologic disorders Ecoli in kidney -Urinary tract mmsoncoww58/24/2013 FAMILY HISTORY Family History ProblemRelationAge of Onset -HypertensionFather -Other DiseasesMaternal Grandmother blood clots -High blood pressureMaternal Grandmother -AneurysmMaternal Grandfather -High blood pressureMaternal Grandfather SOCIAL HISTORY Social History Socioeconomic History -Marital status:Single Spouse name:None -Number of children:None -Years of education:None -Highest education level:None Occupational History -None Social Needs -Financial resource strain:None -Food insecurity: Worry:None Inability:None -Transportation needs: Medical:None Non-medical:None Tobacco Use -Smoking status:Current Every Day Smoker Packs/day:0.50 Years:2.00 Pack years:1.00 Types:Cigarettes -Smokeless tobacco:Never Used Substance and Sexual Activity -Alcohol use:No Comment: occ -Drug use:No Types:Marijuana Comment: former -Sexual activity:Yes Lifestyle -Physical activity: Days per week:None Minutes per session:None -Stress:None Relationships -Social connections: Talks on phone:None Gets together:None Attends oriental orthodox service:None Active member of club or organization:None Attends meetings of clubs or organizations:None Relationship status:None -Intimate partner violence: Fear of current or ex partner:None Emotionally abused:None Physically abused:None Forced sexual activity:None Other TopicsConcern -None Social History Narrative -None SURGICAL HISTORY Past Surgical History: ProcedureLateralityDat e -TONSILLECTOMY As a child -URETER STENT PLACEMENT 01/25/2013 CURRENT MEDICATIONS No outpatient medications have been marked as taking for the 07/09/18 encounter (Hospital Encounter). ALLERGIES Allergies AllergenReactions -PeanutShortness Of Breath and Swelling -Adhesive Tape-Silicones -Tree Nut PHYSICAL EXAM VITAL SIGNS: BP (!) 127/91 Pulse 86 Temp 98.2 ?F (36.8 ?C) Resp 16 Ht 5' 4 (1.626 m) Wt 130 lb (59 kg) LMP 07/03/2018 SpO2 100% BMI 22.31 kg/m? Constitutional: Well developed, Well nourished, No acute distress, Non-toxic appearance. HENT: MMM uvula midline Emerging wisdom teeth left upper, lower malpositioned no induration or fluctuance along gumline Eyes: PERRLA, EOMI, Conjunctiva normal, No discharge. Neck: Normal range of motion, No tenderness, Supple, No stridor. Lymphatic: No lymphadenopathy noted. Cardiovascular: Normal heart rate, Normal rhythm, No murmurs, No rubs, No gallops. Thorax AND Lungs: Normal breath sounds, No respiratory distress, No wheezing, No chest tenderness. Skin: Warm, Dry, No erythema, No rash. Extremities: Intact distal pulses, No edema, No tenderness, No cyanosis, No clubbing. Neurologic: Alert AND oriented x 3, Normal motor function, Normal sensory function, No focal deficits noted. Psychiatric: Affect normal, Judgment normal, Mood normal. COURSE AND MEDICAL DECISION MAKING Pertinent Labs AND Imaging studies reviewed. (See chart for details) Will give Decadron here and d/c with Medrol dose pack for swelling and instructed to see oral surgery for definitive treatment of her wisdom teeth. Reasons to return disucssed I have seen and cared for this patient independently. FINAL IMPRESSION 1. [place] teeth malpositioned 2. Dental pain 3. Electronically signed by: MACK Gomez, 07/09/2018 11:14 PM MACK Gomez 07/09/18 2347 [facility] ED Provider Noteson 06-16-19 ED Provider Notes Encounter Department : [facility] ED Provider Notes by Sawyer Hamlin DO at 06/15/2018 8:25 PM Author: Steph Husseinrvice: Emergency MedicineAuthor Type: ED Physician Filed: 06/15/2018 8:43 PMDate of Service: 06/15/2018 8:25 PMStatus: Signed Diamond Wheel Molder: Sawyer Hamlin DO (ED Physician) CHIEF COMPLAINT Chief Complaint Patient presents with -Sore Throat -Ear Pain HPI Gina Burton is a 22 y.o. female who presents to the emergency department with the complaint of ear pain and sore throat. Symptoms times 5 days. Swallowing makes her symptoms worse. She has not taken any decongestants, Tylenol or Motrin. She denies any fever. Denies any specific cough or shortness of breath. Symptoms are moderate REVIEW OF SYSTEMS CONSTITUTIONAL:Denies fever EYES: Denies vision changes ENT: Sore throat CARDIOVASCULAR: Denies chest pain RESPIRATORY: Denies shortness of breath GI: No vomiting : No dysuria MS:Denies back pain SKIN: No rash NEUROLOGIC: Denies headache ENDOCRINE: Denies polydipsia LYMPHATIC: Denies swollen glands PSYCHIATRIC: Denies anxiety ALLERGIC:No pruritis PAST MEDICAL HISTORY Past Medical History: DiagnosisDate -Abnormal Pap smear of cervix -Chicken pox -Hx of tonsillectomy -Renal and urologic disorders Ecoli in kidney -Urinary tract qdxinkhuk04/24/2013 FAMILY HISTORY Family History ProblemRelationAge of Onset -HypertensionFather -Other DiseasesMaternal Grandmother blood clots -High blood pressureMaternal Grandmother -AneurysmMaternal Grandfather -High blood pressureMaternal Grandfather SOCIAL HISTORY Social History Socioeconomic History -Marital status:Single Spouse name:None -Number of children:None -Years of education:None -Highest education level:None Occupational History -None Social Needs -Financial resource strain:None -Food insecurity: Worry:None Inability:None -Transportation needs: Medical:None Non-medical:None Tobacco Use -Smoking status:Current Every Day Smoker Packs/day:0.50 Years:2.00 Pack years:1.00 Types:Cigarettes -Smokeless tobacco:Never Used Substance and Sexual Activity -Alcohol use:No Comment: occ -Drug use:No Types:Marijuana Comment: former -Sexual activity:Yes Lifestyle -Physical activity: Days per week:None Minutes per session:None -Stress:None Relationships -Social connections: Talks on phone:None Gets together:None Attends oriental orthodox service:None Active member of club or organization:None Attends meetings of clubs or organizations:None Relationship status:None -Intimate partner violence: Fear of current or ex partner:None Emotionally abused:None Physically abused:None Forced sexual activity:None Other TopicsConcern -None Social History Narrative -None SURGICAL HISTORY Past Surgical History: ProcedureLateralityDat e -TONSILLECTOMY As a child -URETER STENT PLACEMENT 01/25/2013 CURRENT MEDICATIONS No current facility-administered medications for this encounter. Current Outpatient Medications: - etonogestrel (NEXPLANON) 68 mg Impl, 1 Device by Subdermal route., Disp: , Rfl: - fluticasone (FLONASE) 50 mcg/actuation nasal spray, 2 sprays into each nostril daily., Disp: 1 Bottle, Rfl: 0 ALLERGIES Allergies AllergenReactions -PeanutShortness Of Breath and Swelling -Adhesive Tape-Silicones -Tree Nut PHYSICAL EXAM ED Triage Vitals [06/15/18 2018] BP112/72 Temp98.3 ?F (36.8 ?C) Heart Rate88 Resp18 IpT612 % Uaynas059 lb (61.2 kg) [place] Coma Scale Score15 BMI (Calculated)24 Constitutional: Well developed, Well nourished. HENT: Normocephalic, Atraumatic, Bilateral external ears normal, Oropharynx moist, Nose normal. Tympanic membranes normal bilaterally, mild posterior pharyngeal erythema with no tonsillar hypertrophy or exudate Eyes: Conjunctiva normal, No discharge. Neck: No JVD, No stridor. Supple with no meningismus Lymphatic: No lymphadenopathy noted. Cardiovascular: Normal heart rate, Normal rhythm, No murmurs, No rubs, No gallops. Thorax AND Lungs: Normal breath sounds, No respiratory distress, No wheezing, No chest tenderness. Abdomen: Bowel sounds normal, Soft, No tenderness, No masses, No pulsatile masses. Skin: Warm, Dry, No erythema, No rash. Back: Atraumatic. Extremities: No cyanosis, No clubbing. FROM Musculoskeletal: No major deformities noted. Neurologic: Alert, No focal deficits noted. Psychiatric: Affect normal, Judgment normal, Mood normal. RADIOLOGY/PROCEDURES/L ABS/MEDICATIONS ADMINISTERED: Last Imaging results: No results found for this visit on 06/15/18. Labs include: STREP A SCREEN REFLEX TO THROAT CX-FOR STREP THROAT - Normal STREP A SCREEN CULTURE Medications - No data to display COURSE AND MEDICAL DECISION MAKING Pertinent Labs AND Imaging studies reviewed. (See chart for details) Patient presents to the emergency department as above, strep screen is negative, she is having sore throat and likely some eustachian tube dysfunction feeling pressure in her ears, will go ahead and place her on Flonase and have her follow-up. FINAL IMPRESSION ICD-10-CM 1.Sore [id number] Electronically signed by: Sawyer Hamlin DO, 06/15/2018 8:42 PM Sawyer Hamlin DO 06/15/182042 [facility] STREP A SCREEN CULTUREon STREP A SCREEN CULTURE STREP A SCREEN CU LTURE No Group A beta streptococcus isolated NORMAL VIKI Moderate Growth Normal Oral Viki Normal [facility] Comment on above: Performed By: #### L [id number] #### [facility] ED [address] [place] [address] #### [id number] #### [facility] [address] STREP A SCREEN REFLEX TO THR OAT CX-FOR STREP THROATon 06-15-2018 STREP A SCREEN REFLEX TO THROAT CX-FOR STREP THROAT Negative Normal [facility] Comment on above: Performed By: #### L [id number] #### [facility] ED [address] [place] [address] #### [id number] #### [facility] [address] ED Provider Noteson 05-29-19 19 ED Provider Notes Encounter Department : [facility] EMERGENCY ED Provider Notes by Regine Sarkar PA-C at 05/29/2018 5:06 PM Author: Williams Carltonrvice: Emergency MedicineAuthor Type: Physician Plumbing Drafter Filed: 05/29/2018 10:10 PMDate of Service: 05/29/2018 5:06 PMStatus: Signed Diamond Wheel Molder: Regine Sarkar PA-C (Physician Plumbing Drafter)Cosigner: Ashley Moore MD at 05/30/2018 9:18 PM CHIEF COMPLAINT Chief Complaint Patient presents with -Ankle Injury HPI Gina Burton is a 22 y.o. female who presents to the emergency department with left ankle pain and swelling. Patient states she was stepping off of her porch this morning and missed a step, causing her to twist her left ankle inward. She denies head injury loss of consciousness. She states she has had gradually worsening pain to the lateral aspect of the left ankle radiating to the right side and to the top of the foot. She states it is worsened with any range of motion or attempted bearing weight. She denies numbness or tingling distally. Denies additional injury. She took 800 mg ibuprofen about an hour and a half prior to arrival. She states the pain is moderate, throbbing, constant. REVIEW OF SYSTEMS Review of Systems Constitutional: Negative for chills and fever. Musculoskeletal: + left ankle pain Skin: Negative for rash. Neurological: Negative for tingling, sensory change and weakness. PAST MEDICAL HISTORY Past Medical History: DiagnosisDate -Abnormal Pap smear of cervix -Chicken pox -Hx of tonsillectomy -Renal and urologic disorders Ecoli in kidney -Urinary tract ckbefqrmq96/24/2013 FAMILY HISTORY Family History ProblemRelationAge of Onset -HypertensionFather -Other DiseasesMaternal Grandmother blood clots -High blood pressureMaternal Grandmother -AneurysmMaternal Grandfather -High blood pressureMaternal Grandfather SOCIAL HISTORY Social History Social History -Marital status:Single Spouse name:N/A -Number of children:N/A -Years of education:N/A Social History Main Topics -Smoking status:Current Every Day Smoker Packs/day:1.00 Years:2.00 Types:Cigarettes -Smokeless tobacco:Never Used -Alcohol useNo Comment: occ -Drug use:No Comment: former -Sexual activity:Yes Other TopicsConcern -None Social History Narrative -None SURGICAL HISTORY Past Surgical History: ProcedureLateralityDat e -TONSILLECTOMY As a child -URETER STENT PLACEMENT 01/25/2013 CURRENT MEDICATIONS Outpatient Prescriptions Marked as Taking for the 05/29/18 encounter (Hospital Encounter) MedicationSigDispenseR efill -etonogestrel (NEXPLANON) 68 mg Impl1 Device by Subdermal route. ALLERGIES Allergies AllergenReactions -PeanutShortness Of Breath and Swelling -Adhesive Tape-Silicones -Tree Nut PHYSICAL EXAM VITAL SIGNS: ED Triage Vitals [05/29/18 1647] BP126/74 Temp98.5 ?F (36.9 ?C) Heart Rate85 Resp16 [id number] % Euaqqx497 lb (59 kg) [place] Coma Scale Score15 BMI (Calculated)23.8 Constitutional: Well developed, Well nourished. Nontoxic HENT: Normocephalic, Atraumatic Eyes: Conjunctiva normal, No discharge. No scleral icterus. Neck: Normal range of motion, No tenderness, Supple. Cardiovascular: Normal heart rate, Normal rhythm, No murmurs, gallops or rubs. Thorax AND Lungs: Normal breath sounds, No respiratory distress, No wheezing. Skin: Warm, Dry, No erythema, No rash. Extremities: Swelling noted over the lateral malleolus for left ankle with tenderness to palpation. There is mild discomfort with palpation over the medial malleolus. No tenderness of the proximal tib-fib region. No appreciable tenderness over the dorsum of the foot aside from some mild discomfort over the base of the left foot, lateral aspect. Extremity is neurovascularly intact. Musculoskeletal: limited ROM left ankle secondary to pain. No major deformities noted. Neurologic: Alert AND oriented x 3, Normal motor function, Normal sensory function, No focal deficits noted. RADIOLOGY/PROCEDURES No data to display I personally reviewed the images. The radiologist's interpretation reveals: Last Imaging results Results for orders placed or performed during the hospital encounter of 05/29/18 XR-ANKLE LEFT 3 OR MORE VIEWS Narrative PROCEDURE: XR-ANKLE LEFT 3 OR MORE VIEWS DATE OF EXAM: 05/29/2018 4:56 PM DEMOGRAPHICS: 22 years old Female INDICATION: Trauma History: Pt complains of LT ankle pain, worse laterally, after falling down stairs.. Number of Series/Images: 3. COMPARISON: No existing relevant imaging study corresponding to the same anatomical region is available. FINDINGS: 3 views of the Left ankle were obtained. Lateral soft tissue swelling. Joint effusion. No acute fracture or dislocation. Impression 1. Lateral soft tissue injury [id number] This dictation was created with voice recognition software. While attempts have been made to review the dictation as it is transcribed, on occasion the spoken word can be misinterpreted by the technology leading to omissions or inappropriate words, phrases or sentences. Electronically Signed by: Naseem Gaspar MD, 05/29/2018 5:00 PM MEDS GIVEN IN ED: Medications acetaminophen (TYLENOL) tablet 1,000 mg (1,000 mg Oral Given 05/29/188) methocarbamol (ROBAXIN) tablet 500 mg (500 mg Oral Given 05/29/181717) COURSE AND MEDICAL DECISION MAKING Pertinent Labs AND Imaging studies reviewed. (See chart for details) 22-year-old female presents with left ankle pain and swelling after twisting injury this morning. Extremities neurovascularly intact. No evidence of fracture on imaging today. Patient is placed in an Aircast and given crutches. Will rest, ice, elevate and continue anti-inflammatories and primary care follow-up, return if symptoms worsen. Patient understanding of plan I have seen this patient in conjunction with Dr. [place] Discharge Medication List as of 05/29/2018 5:58 PM START taking these medications Details methocarbamol (ROBAXIN) 500 mg tabletTake 1 tablet by mouth 3 times daily as needed for Muscle spasms.500 mg, Disp-21 tablet, R-0, Print FINAL IMPRESSION ICD-10-CM 1.Sprain of left ankle, unspecified ligament, initial [id number] Electronically signed by: Regine Sarkar PA-C, 05/29/2018 Regine Sarkar PA-C 05/29/18 2210 Normal [facility] ED Provider Notes Encounter Department : [facility] EMERGENCY ED Provider Notes by Ashley Moore MD at 05/29/2018 4:48 PM Author: LEONEL Guerraervice: (none)Author Type: ED Physician Filed: 06/02/2018 5:18 PMDate of Service: 05/29/2018 4:48 PMStatus: Signed Diamond Wheel Molder: Ashley Moore MD (ED Physician) I have personally seen and examined this patient. I have fully participated in the care of this patient. I have reviewed and agree with all pertinent clinical information including history, physical exam, labs, radiographic studies and the plan. I have also reviewed and agree with the medications, allergies and past medical history sections for this patient. See extenders note for full details. HPI: Ginamiles Burton ia a 22 y.o.female who presents to ED with left ankle injury, no other injuries noted left ankle pain Review of Systems: . REVIEW OF SYSTEMS: CONSTITUTIONAL: Denies fever, chills, weight loss or weakness EYES: Denies photophobia or discharge ENT: Denies sore throat or ear pain CARDIOVASCULAR: Denies chest pain, palpitations or swelling RESPIRATORY: Denies cough or shortness of breath GI: Denies abdominal pain, nausea, vomiting, or diarrhea : Denies dysuria or hematuria MUSCULOSKELETAL: Denies back pain, left ankle pain SKIN: No rash NEUROLOGIC: Denies headache, focal weakness or sensory changes [facility] that they send email forwarded multiple other Tuesday, try to see if he will come in a there are to send that out the center to I see okay of sleep onset patient is to the [facility]'s PSYCHIATRIC: Denies depression, suicidal ideation or homicial ideation PAST MEDICAL HISTORY (reviewed and verified by me) Past Medical History: DiagnosisDate -Abnormal Pap smear of cervix -Chicken pox -Hx of tonsillectomy -Renal and urologic disorders Ecoli in kidney -Urinary tract plodffcfs81/24/2013 FAMILY HISTORY(reviewed and verified by me) Family History ProblemRelationAge of Onset -HypertensionFather -Other DiseasesMaternal Grandmother blood clots -High blood pressureMaternal Grandmother -AneurysmMaternal Grandfather -High blood pressureMaternal Grandfather SOCIAL HISTORY(reviewed and verified by me) Social History Social History -Marital status:Single Spouse name:N/A -Number of children:N/A -Years of education:N/A Social History Main Topics -Smoking status:Current Every Day Smoker Packs/day:1.00 Years:2.00 Types:Cigarettes -Smokeless tobacco:Never Used -Alcohol useNo Comment: occ -Drug use:No Comment: former -Sexual activity:Yes Other TopicsConcern -None Social History Narrative -None SURGICAL HISTORY Past Surgical History: ProcedureLateralityDat e -TONSILLECTOMY As a child -URETER STENT PLACEMENT 01/25/2013 CURRENT MEDICATIONS No current facility-administered medications for this encounter. Current Outpatient Prescriptions MedicationSigDispenseR efill -etonogestrel (NEXPLANON) 68 mg Impl1 Device by Subdermal route. -methocarbamol (ROBAXIN) 500 mg tabletTake 1 tablet by mouth 3 times daily as needed for Muscle spasms.21 tablet0 ALLERGIES Allergies AllergenReactions -PeanutShortness Of Breath and Swelling -Adhesive Tape-Silicones -Tree Nut PE: Vital Signs: BP 105/65 Pulse 70 Temp 98.5 ?F (36.9 ?C) Resp 18 Ht 5' 2 (1.575 m) Wt 130 lb (59 kg) SpO2 99% BMI 23.78 kg/m? General: Patient appears non-toxic HENT: Atraumatic, normocephalic, oral mucosa moist Lungs: Clear to auscultation bilaterally Heart: Regular rate and rhythm Abdomen: Non-distended, soft, non-tender Extremities: No edema Neuro: Nonfocal Medical Decision Making and Plan: Pertinent Labs AND Imaging studies reviewed. (See chart for details) BP: -- Temp: -- Heart Rate: -- Resp: -- SpO2: -- FiO2 (%): -- O2 Flow Rate (L/min): -- Cardiac (WDL): -- Cardiac Rhythm: -- No data to display Last Imaging results Results for orders placed or performed during the hospital encounter of 05/29/18 XR-ANKLE LEFT 3 OR MORE VIEWS Narrative PROCEDURE: XR-ANKLE LEFT 3 OR MORE VIEWS DATE OF EXAM: 05/29/2018 4:56 PM DEMOGRAPHICS: 22 years old Female INDICATION: Trauma History: Pt complains of LT ankle pain, worse laterally, after falling down stairs.. Number of Series/Images: 3. COMPARISON: No existing relevant imaging study corresponding to the same anatomical region is available. FINDINGS: 3 views of the Left ankle were obtained. Lateral soft tissue swelling. Joint effusion. No acute fracture or dislocation. Impression 1. Lateral soft tissue injury [id number] This dictation was created with voice recognition software. While attempts have been made to review the dictation as it is transcribed, on occasion the spoken word can be misinterpreted by the technology leading to omissions or inappropriate words, phrases or sentences. Electronically Signed by: Naseem Gaspar MD, 05/29/2018 5:00 PM Pertinent labs and imaging studies as well as on nurse's notes and EMS notes were reviewed Differential vital signs patient risk factors HPI and past medical history were evaluated and considered Above exam and workup was performed ED Meds Medications acetaminophen (TYLENOL) tablet 1,000 mg (1,000 mg Oral Given 05/29/181717) methocarbamol (ROBAXIN) tablet 500 mg (500 mg Oral Given 05/29/181717) Discharge Meds Discharge Medication List as of 05/29/2018 5:58 PM START taking these medications Details methocarbamol (ROBAXIN) 500 mg tabletTake 1 tablet by mouth 3 times daily as needed for Muscle spasms.500 mg, Disp-21 tablet, R-0, Print Diagnosis: ICD-10-CM 1.Sprain of left ankle, unspecified ligament, initial [id number] 2.Tobacco [id number] I spent approximately 4 minutes discussing smoking cessation including long-term health risks, current symptomatology association, steps to decreasing and eliminating tobacco use and followup with primary care to discuss pharmacologic therapy. Electronically signed by:Ashley Moore,06/02/2018 Ashley Moore MD 06/02/18 1718 Normal [facility] XR-ANKLE LEFT 3 OR MORE VIEW Son 05-29-2018 XR-ANKLE LEFT 3 OR MORE VIEWS PROCEDURE: XR-ANKLE LEFT 3 OR MORE VIEWS DATE OF EXAM: 05/29/2018 4:56 PM DEMOGRAPHICS: 22 years old Female INDICATION: Trauma History: Pt complains of LT ankle pain, worse laterally, after falling down stairs.. Number of Series/Images: 3. COMPARISON: No existing relevant imaging study corresponding to the same anatomical region is available. FINDINGS: 3 views of the Left ankle were obtained. Lateral soft tissue swelling. Joint effusion. No acute fracture or dislocation. IMPRESSION: IMPRESSION: 1. Lateral soft tissue injury [id number] This dictation was created with voice recognition software. While attempts have been made to review the dictation as it is transcribed, on occasion the spoken word can be misinterpreted by the technology leading to omissions or inappropriate words, phrases or sentences. Electronically Signed by: Naseem Gaspar MD, 05/29/2018 5:00 PM Normal [facility] ED Provider Noteson 03-24-20 18 ED Provider Notes Encounter Department : [facility] EMERGENCY ED Provider Notes by Emiliano Blanton MD at 03/24/2018 12:38 AM Author: LEONEL Meierervice: Emergency MedicineAuthor Type: ED Physician Filed: 03/24/2018 12:46 AMDate of Service: 03/24/2018 12:38 AMStatus: Signed Diamond Wheel Molder: Emiliano Blanton MD (ED Physician) CHIEF COMPLAINT Chief Complaint Patient presents with -Sore Throat *NURSING NOTES REVIEWED HPI Gina Burton is a 22 y.o. female who presents 2-day history of persistent throbbing dry sore throat associated with bilateral throbbing ear pain. Patient states his symptoms are similar to her prior strep throat symptoms prior to bilateral tonsillectomy. Endorses associated body aches. Pain is worse with swallowing better with oral rest. She has not taken anything for symptoms prior to arrival. Denies hearing difficulty, neck pain, nausea, vomiting, fever, chills or any other acute complaints. REVIEW OF SYSTEMS Constitutional: (-) weight loss/gain (-) anorexia (-) fever (-) chills (-) night sweats HEENT: (-) headaches (-) dizziness (-) visual symptoms (-) confusion (-) hearing loss Cardiovascular: (-) chest pain (-) orthopnea (-) palpitations (-) claudication Pulmonary: (-) dyspnea (-) cough (-) hemoptysis (-) wheezing (-) voice changes. Gastrointestinal: (-) nausea (-) vomiting (-) diarrhea (-) constipation (-) hematemesis, (-)hematochezia (-) melena (-) abdominal pain (-) dysphagia (-) jaundice. Genitourinary: (-) dysuria (-) urinary urgency (-) urinary frequency (-) abnormal bleeding / discharge Neurologic: (-) loss of consciousness (-) seizures (-) dysarthria (-) aphasia, (-) weakness, (-) numbness (-) unsteady gait (-) vertigo (-) memory problems. Endocrine: (-) heat or cold intolerance (-) tremor (-) lethargy Musculoskeletal: (+) myalgias (-) arthralgias (-) edema (-) rash (-) bruising Psych: (-) Suicidal (-) Homicidal (-) Auditory hallucinations (-) visual hallucinations PAST MEDICAL HISTORY Past Medical History: DiagnosisDate -Abnormal Pap smear of cervix -Chicken pox -Hx of tonsillectomy -Renal and urologic disorders Ecoli in kidney -Urinary tract hdnfiqudn51/24/2013 FAMILY HISTORY Family History ProblemRelationAge of Onset -HypertensionFather -Other DiseasesMaternal Grandmother blood clots -High blood pressureMaternal Grandmother -AneurysmMaternal Grandfather -High blood pressureMaternal Grandfather SOCIAL HISTORY Social History Social History -Marital status:Single Spouse name:N/A -Number of children:N/A -Years of education:N/A Social History Main Topics -Smoking status:Current Every Day Smoker Packs/day:0.50 Years:2.00 Types:Cigarettes -Smokeless tobacco:Never Used -Alcohol useNo Comment: occ -Drug use:No Comment: former -Sexual activity:Yes Other TopicsConcern -None Social History Narrative -None SURGICAL HISTORY Past Surgical History: ProcedureLateralityDat e -TONSILLECTOMY As a child -URETER STENT PLACEMENT 01/25/2013 CURRENT MEDICATIONS No current facility-administered medications for this encounter. Current Outpatient Prescriptions MedicationSigDispenseR efill -amoxicillin (AMOXIL) 500 mg capsuleTake 1 capsule by mouth 3 times daily for 7 days.21 capsule0 -carbamide peroxide (DEBROX) 6.5 % otic solutionPlace 5 drops into both ears 2 times daily for 3 days.15 mL2 -ibuprofen (MOTRIN) 600 mg tabletTake 1 tablet by mouth every 6 hours as needed for Pain.28 tablet0 ALLERGIES Allergies AllergenReactions -PeanutShortness Of Breath and Swelling -Adhesive Tape-Silicones -Tree Nut PHYSICAL EXAM VITAL SIGNS: BP 124/80 Pulse 111 Resp 18 Ht 5' 4 (1.626 m) Wt 130 lb (59 kg) SpO2 100% BMI 22.31 kg/m? Constitutional: Well developed, Well nourished, appears uncomfortable and concerned HENT: Normocephalic, Atraumatic, Bilateral external ears normal with impacted cerumen bilaterally, Oropharynx mild dry with posterior erythema but no swelling or exudate, No oral exudates, Nose normal. Eyes: PERRLA, EOMI, Conjunctiva normal, No discharge. Neck: Normal range of motion, No tenderness, Supple, No stridor. Meningismus Lymphatic: Positive bilateral anterior cervical lymphadenopathy noted Cardiovascular: Tachycardic heart rate, Normal rhythm, No murmurs, No rubs, No gallops. Thorax AND Lungs: Normal breath sounds, No respiratory distress, No wheezing, No chest tenderness. Abdomen: Bowel sounds normal, Soft, No tenderness, No masses, No pulsatile masses. Skin: Warm, Dry, No erythema, No rash. Back: No midline spinal tenderness, No CVA tenderness. Extremities: Intact distal pulses, No edema, No tenderness, No cyanosis, No clubbing. Musculoskeletal: Good range of motion in all major joints. No tenderness to palpation or major deformities noted. Neurologic: Alert AND oriented x 3, Normal motor function, Normal sensory function, No focal deficits noted. Psychiatric: Affect normal, Judgment normal, Mood normal. EKG None COURSE AND MEDICAL DECISION MAKING Pertinent Labs AND Imaging studies reviewed. (See chart for details) This is a 22-year-old female with past medical history of nicotine dependence and recurrent throat infections status post tonsillectomy who presents with 2-day history of sore throat and bilateral ear pain. Patient presents appearing unwell and vital signs remarkable for tachycardia. Satting well on room air. Concern for acute pharyngitis viral versus bacterial versus other. Will treat empirically with intramuscular Toradol, oral Decadron, swab throat for strep and reassess. I spent approximately 4 minutes discussing nicotine cessation including long-term health risks, current symptomatology association, steps to decreasing and eliminating tobacco use and followup with primary care to discuss pharmacologic therapy. 0045: Patient reassessed and resting a bit more comfortably after initial management as above. Strep screen positive. Will treat empirically with amoxicillin and discharged home with reassurance, strict ER return precautions, NSAIDs as needed for pain control, decompressed drops for her bilateral impacted cerumen and close PCP follow-up. FINAL IMPRESSION ICD-10-CM 1.Acute bacterial ubqdmgnglaeF67.8 B96.89 2.Cigarette nicotine dependence without bjtaqfsxicqkE53.210 3.Anterior cervical twwstknvtaauafrG55.0 4.Bilateral impacted abqroosL36.23 Electronically signed by: Emiliano Blanton, 03/24/2018 Emiliano Blanton MD 03/24/18 0046 [facility] STREP A SCREEN REFLEX TO THR OAT CX-FOR STREP THROATon 03-24-2018 STREP A SCREEN REFLEX TO THROAT CX-FOR STREP THROAT Positive Normal [facility] Comment on above: Performed By: #### L [id number] #### [place] [address] BASIC METABOLIC PANELon 03-0 Anion gap 10 mmol/L Normal 5-15 [facility] Comment on above: Performed By: #### L [id number] ####[place] [phone] BUN/Creatinine Ratio 17 (CALC) Normal 7.0-25.0 [facility] Comment on above: Performed By: #### L [id number] ####[place] [phone] Calcium 8.9 mg/dL Normal 8.5-10.5 [facility] Comment on above: Performed By: #### L [id number] ####[place] [phone] Chloride 104 mmol/L Normal 96-110 [facility] Comment on above: Performed By: #### L [id number] ####[place] [phone] CO2 26 mmol/L Normal 19-32 [facility] Comment on above: Performed By: #### L [id number] ####[place] [phone] Creatinine 0.7 mg/dL Normal 0.5-1.2 [facility] Comment on above: Performed By: #### L [id number] ####[place] [phone] eGFR (MDRD) 124 ML/MIN/1.73M2 Normal [facility] Comment on above: Result Comment: IF T HE PATIENT IS , PLEASE MULTIPLYTHIS BY 1.159. THIS RESULT HAS BEEN CALCULATEDASSUMING THE PATIENT IS NON- Performed By: #### L [id number] ####[place] [phone] Glucose mass conc 93 mg/dL Normal 70-99 [facility] Comment on above: Performed By: #### L [id number] ####[place] [phone] Potassium molar conc 4.0 mmol/L Normal 3.4-5.3 [facility] Comment on above: Performed By: #### L [id number] ####[place] [phone] Sodium 140 mmol/L Normal 135-148 [facility] Comment on above: Performed By: #### L [id number] ####[place] [phone] Urea nitrogen 12 mg/dL Normal 3-29 [facility] Comment on above: Performed By: #### L [id number] ####[place] [phone] COMPLETE BLOOD COUNT WITH DI FFERENTIALon 06-02-2017 % SEGMENTED NEUTROPHILS 43.9 % Normal 40.0-75.0 M [facility] Comment on above: Performed By: #### L [id number] ####[place] [phone] ABSOLUTE BASOPHIL 0.1 K/MM3 Normal 0.0-0.3 [facility] Comment on above: Performed By: #### L [id number] ####[place] [phone] ABSOLUTE SEGMENTED NEUTROPHIL 3.5 K/MM3 Normal 1.5-7.8 [facility] Comment on above: Performed By: #### L [id number] ####[place] [phone] Basophils/100 WBC Auto (Bld) 1.3 % Normal 0.0-2.0 [facility] Comment on above: Performed By: #### L [id number] ####[place] [phone] Eosinophils 0.3 10*3/uL Normal 0.0-0.6 [facility] Comment on above: Performed By: #### L [id number] ####[place] [phone] Eosinophils/100 leukocytes 4.0 % Normal 0.0-7.0 [facility] Comment on above: Performed By: #### L [id number] ####[place] [phone] Erythrocyte distribution width Auto Ratio (RBC) 12.5 % Normal 9.0-15.0 [facility] Comment on above: Performed By: #### L [id number] ####[place] [phone] Erythrocytes (RBC) 4.30 M/MM3 Normal 3.90-5.20 [facility] Comment on above: Performed By: #### L [id number] ####[place] [phone] Hematocrit (HCT) 40.1 % Normal 35.0-46.0 [facility] Comment on above: Performed By: #### L [id number] ####[place] [phone] Hemoglobin mass conc (Bld) 13.7 g/dL Normal 12.0-15.6 [facility] Comment on above: Performed By: #### L [id number] ####[place] [phone] Lymphocytes 3.5 10*3/uL Normal 0.9-4.1 [facility] Comment on above: Performed By: #### L [id number] ####[place] [phone] Lymphocytes/100 leukocytes 43.1 % Normal 18.0-47.0 [facility] Comment on above: Performed By: #### L [id number] ####[place] [phone] MCH 32.0 pg Normal 27.0-33.0 [facility] Comment on above: Performed By: #### L [id number] ####[place] [phone] MCHC mass conc (RBC) 34.2 g/dL Normal 32.0-36.0 [facility] Comment on above: Performed By: #### L [id number] ####[place] [phone] MCV 93.4 fL Normal 80.0-100.0 [facility] Comment on above: Performed By: #### L [id number] ####[place] [phone] Monocytes 0.6 10*3/uL Normal 0.2-1.1 [facility] Comment on above: Performed By: #### L [id number] ####[place] [phone] Monocytes/100 leukocytes 7.7 % Normal 0-14.0 [facility] Comment on above: Performed By: #### L [id number] ####[place] [phone] Platelets 280 10*3/uL Normal 130-400 [facility] Comment on above: Performed By: #### L [id number] ####[place] [phone] WBC (Leukocytes) 8.0 10*3/uL Normal 3.8-10.8 [facility] Comment on above: Performed By: #### L [id number] ####[place] [phone] HEPATIC FUNCTION PANELon Alanine aminotransferase (ALT) 8 U/L Normal 0-60 [facility] Comment on above: Performed By: #### L [id number] ####[place] [phone] Albumin 4.1 g/dL Normal 3.5-5.2 [facility] Comment on above: Performed By: #### L [id number] ####[place] [phone] Albumin/Globulin Ratio 1.5 (CALC) Normal 0.8-2.6 [facility] Comment on above: Performed By: #### L [id number] ####[place] [phone] Alkaline phosphatase (ALP) 66 U/L Normal 23-144 [facility] Comment on above: Performed By: #### L [id number] ####[place] [phone] Aspartate aminotransferase (AST) 15 U/L Normal 0-46 [facility] Comment on above: Performed By: #### L [id number] ####[place] [phone] Bilirubin (direct) 0.1 mg/dL Normal 0.0-0.4 [facility] Comment on above: Performed By: #### L [id number] ####[place] [phone] Bilirubin (total) 0.2 mg/dL Normal 0.0-1.2 [facility] Comment on above: Performed By: #### L [id number] ####[place] [phone] BILIRUBIN,INDIRECT 0.1 MG/DL Normal 0.0-1.2 [facility] Comment on above: Performed By: #### L [id number] ####[place] [phone] Globulin 2.7 GM/DL (CALC) Normal 1.9-3.6 [facility] Comment on above: Performed By: #### L [id number] ####[place] [phone] Protein 6.8 g/dL Normal 6.0-8.3 [facility] Comment on above: Performed By: #### L [id number] ####[place] [phone] LIPASEon 06-02-2017 Lipase 21 U/L Normal 0-60 [facility] Comment on above: Performed By: #### L [id number] ####[place] [phone] SCREEN, URINEon HCG.beta subunit ( test) Ql (U) TEST PERFORMED IN [facility] Normal NEG [facility] Comment on above: Performed By: #### L [id number] ####[place] [phone] URINALYSIS MACROSCOPICon BILIRUBIN, URINE Negative Normal NEG [facility] Comment on above: Performed By: #### L [id number] ####[place] [phone] BLOOD, URINE TRACE Abnormal NEG [facility] Comment on above: Performed By: #### L [id number] ####[place] [phone] KETONE, URINE Negative Normal NEG [facility] Comment on above: Performed By: #### L [id number] ####[place] [phone] LEUKOCYTES, URINE Negative Normal NEG [facility] Comment on above: Performed By: #### L [id number] ####[place] [phone] NITRITES, URINE Negative Normal NEG [facility] Comment on above: Performed By: #### L [id number] ####[place] [phone] PROTEIN, URINE Negative Normal NEG [facility] Comment on above: Performed By: #### L [id number] ####[place] [phone] SPECIFIC GRAVITY, URINE 1.025 Normal 1.005-1.030 [facility] Comment on above: Performed By: #### L [id number] ####[place] [phone] Urine, appearance CLEAR Normal [facility] Comment on above: Performed By: #### L [id number] ####[place] [phone] Urine, color YELLOW Normal [facility] Comment on above: Performed By: #### L [id number] ####[place] [phone] Urine, glucose presence Negative Normal NEG [facility] Comment on above: Performed By: #### L [id number] ####[place] [phone] Urine, pH 6.0 [pH] Normal 4.5-8.0 [facility] Comment on above: Performed By: #### L [id number] ####[place] [phone] UROBILINOGEN, URINE NORMAL Normal NORM [facility] Comment on above: Performed By: #### L [id number] ####[place] [phone] CHLAMYDIA AND GC PROBEon CHLAMYDIA AND GC PROBE SOURCE, MICRO (NO TE) NO SOURCE INDICATED NOTE: THIS TEST HAS BEEN FDA-APPROVED ONLY FOR UROGENITAL SPECIMENS.CHLAMYDIA AMPLIFIED PROBE NEGATIVE Reference range: NEGATIVENEISSERIA GONORRHEA RNA, TMA NEGATIVE Reference range: NEGATIVEPERFORMED AT: [place] Normal [facility] Comment on above: Performed By: #### L [id number] ####[place] [phone] CT STONE PROTOCOLon 04-04-19 CT STONE PROTOCOL EXAM DATE: 7 6:50 PM.PROCEDURE: CT STONE PROTOCOL.INDICATION: Kidney stone, .COMPARISON: 02/26/2017.TECHNIQUE: Helically acquired contrast enhanced multidetector CT of the abdomen and pelvis acquired without intravenous contrast. Images were reconstructed in the axial plane with subsequent reformatting in the coronal plane.FINDINGS:within the limitation of this non-contrast study: Lower Chest: No effusion or consolidation. The heart and pericardium are unremarkable.Liver: No focal mass. Bile Ducts: No intra or extra hepatic ductal dilatation.Gallbladder : Collapsed without evidence of stone, wall thickening or pericholecystic fluid. Pancreas: No ductal dilatation or focal mass.Spleen: UnremarkableAdrenal Glands: No adrenal mass.Kidneys: No contour deforming mass or hydronephrosis. No renal calculus. The ureters are normal in caliber. Possible right renal scarring, better characterized on the previous study.Bladder: Unremarkable.Reproduct gini Organs: The uterus and adnexa appear unremarkable. There is a tampon in the vagina.Bowel: The non-opacified and unenhanced stomach, small bowel, and colon appear unremarkable. There is a moderate amount of stool throughout the colon. Large amount of food and debris in the stomach. The appendix appears normal. Free Fluid: None.Free Air: None.Lymph nodes: No lymphadenopathy.Major Vascular Structures: The aorta and IVC appear unremarkable.Abdominal wall: Unremarkable.Bones: UnremarkableIMPRESSION :1. No CT explanation is seen for the patient's abdominal pain. The gallbladder and appendix appear normal. No evidence of renal or ureteral calculus.2. Moderate amount of stool throughout the colon.Workstation ID:[id number] right lower and mid abdominal pain. Pt holding side appears uncomfortable. Pt denies other symptoms. Pt still has marcy and gb. Normal [facility] US PELVISon 04-04-2017 US PELVIS 04/03/2017 11:29 PMTRANSVAGINAL ULTRASOUND OF PELVIS:INDICATION: Right lower and mid abdomen pain.COMPARISON: Ultrasound July 07, 2012.FINDINGS: The uterus is now retroverted in position but maintains a normal size, contour and echogenicity, measuring 3.4 x 4.2 x 6.7 cm. Incidental note is made of a simple 4.5 mm nabothian cyst within the right margin of cervix. The uterus also demonstrates homogeneous echogenicity and measures no more than 6 mm in thickness.Both ovaries are of normal size and demonstrate normal vascular flow. The right ovary measures 2.2 x 2.3 x 3.4 cm (9.0 cc), while the left measures 1.8 x 2.8 x 4.0 cm (10.4 cc). The right ovary contains 4 separate small simple follicular cysts with the largest measuring 8 mm. The left ovary also contains 3 subcentimeter simple follicular cysts with the largest measuring 9 mm but also contains an additional complex multiseptated 9 x 17 x 18 mm cyst. An additional or more dominant adnexal mass or cyst are not identified.Free intraperitoneal fluid within pelvis is not observed.IMPRESSION: 1. SINGLE COMPLEX 18 MM LEFT OVARIAN CYST.2. SEVERAL BILATERAL SUBCENTIMETER SIMPLE FOLLICULAR CYSTS.3. RETROVERTED UTERUS.4. OTHERWISE NORMAL EXAM.DICTATED BY: Nabeel Batres M.D..This dictation was created with speech recognition software. While attempts have been made to review the dictation as it is transcribed, on occasion the spoken word can be misinterpreted by the technology leading to omissions or inappropriate words, phrases or sentences.Workstation ID:[id number] Normal [facility] BASIC METABOLIC PANELon 12-3 Anion gap 12 mmol/L Normal 5-15 [facility] Comment on above: Performed By: #### L [id number] ####[place] [phone] BUN/Creatinine Ratio 17 (CALC) Normal 7.0-25.0 [facility] Comment on above: Performed By: #### L [id number] ####[place] [phone] Calcium 9.3 mg/dL Normal 8.5-10.5 [facility] Comment on above: Performed By: #### L [id number] ####[place] [phone] Chloride 102 mmol/L Normal 96-110 [facility] Comment on above: Performed By: #### L [id number] ####[place] [phone] CO2 26 mmol/L Normal 19-32 [facility] Comment on above: Performed By: #### L [id number] ####[place] [phone] Creatinine 0.7 mg/dL Normal 0.5-1.2 [facility] Comment on above: Performed By: #### L [id number] ####[place] [phone] eGFR (MDRD) 124 ML/MIN/1.73M2 Normal [facility] Comment on above: Result Comment: IF T HE PATIENT IS , PLEASE MULTIPLYTHIS BY 1.159. THIS RESULT HAS BEEN CALCULATEDASSUMING THE PATIENT IS NON- Performed By: #### L AB064 ####[place] [phone] Glucose mass conc 102 mg/dL High 70-99 [facility] Comment on above: Performed By: #### L [id number] ####[place] [phone] Potassium molar conc 3.7 mmol/L Normal 3.4-5.3 [facility] Comment on above: Performed By: #### L [id number] ####[place] [phone] Sodium 140 mmol/L Normal 135-148 [facility] Comment on above: Performed By: #### L [id number] ####[place] [phone] Urea nitrogen 12 mg/dL Normal 3-29 [facility] Comment on above: Performed By: #### L [id number] ####[place] [phone] COMPLETE BLOOD COUNT WITH DI FFERENTIALon 04-03-2017 % SEGMENTED NEUTROPHILS 49.6 % Normal 40.0-75.0 [facility] Comment on above: Performed By: #### L [id number] ####[place] [phone] ABSOLUTE BASOPHIL 0.1 K/MM3 Normal 0.0-0.3 [facility] Comment on above: Performed By: #### L [id number] ####[place] [phone] ABSOLUTE SEGMENTED NEUTROPHIL 3.8 K/MM3 Normal 1.5-7.8 [facility] Comment on above: Performed By: #### L [id number] ####[place] [phone] Basophils/100 WBC Auto (Bld) 1.2 % Normal 0.0-2.0 [facility] Comment on above: Performed By: #### L [id number] ####[place] [phone] Eosinophils 0.3 10*3/uL Normal 0.0-0.6 [facility] Comment on above: Performed By: #### L [id number] ####[place] [phone] Eosinophils/100 leukocytes 3.8 % Normal 0.0-7.0 [facility] Comment on above: Performed By: #### L [id number] ####[place] [phone] Erythrocyte distribution width Auto Ratio (RBC) 12.4 % Normal 9.0-15.0 [facility] Comment on above: Performed By: #### L [id number] ####[place] [phone] Erythrocytes (RBC) 4.47 M/MM3 Normal 3.90-5.20 [facility] Comment on above: Performed By: #### L [id number] ####[place] [address]-7882542.296.0844 Hematocrit (HCT) 41.7 % Normal 35.0-46.0 [facility] Comment on above: Performed By: #### L [id number] ####[place] [phone] Hemoglobin mass conc (Bld) 14.0 g/dL Normal 12.0-15.6 [facility] Comment on above: Performed By: #### L [id number] ####[place] [phone] Lymphocytes 2.9 10*3/uL Normal 0.9-4.1 [facility] Comment on above: Performed By: #### L [id number] ####[place] [phone] Lymphocytes/100 leukocytes 38.5 % Normal 18.0-47.0 [facility] Comment on above: Performed By: #### L [id number] ####[place] [phone] MCH 31.2 pg Normal 27.0-33.0 [facility] Comment on above: Performed By: #### L [id number] ####[place] [phone] MCHC mass conc (RBC) 33.5 g/dL Normal 32.0-36.0 [facility] Comment on above: Performed By: #### L [id number] ####[place] [phone] MCV 93.3 fL Normal 80.0-100.0 [facility] Comment on above: Performed By: #### L [id number] ####[place] [phone] Monocytes 0.5 10*3/uL Normal 0.2-1.1 [facility] Comment on above: Performed By: #### L [id number] ####[place] [address]-3278417.296.0844 Monocytes/100 leukocytes 6.9 % Normal 0-14.0 [facility] Comment on above: Performed By: #### L AB119 ####[place] [phone] Platelets 257 10*3/uL Normal 130-400 [facility] Comment on above: Performed By: #### L [id number] ####[place] [phone] WBC (Leukocytes) 7.6 10*3/uL Normal 3.8-10.8 [facility] Comment on above: Performed By: #### L [id number] ####[place] [phone] HEPATIC FUNCTION PANELon Alanine aminotransferase (ALT) 6 U/L Normal 0-60 [facility] Comment on above: Performed By: #### L [id number] ####[place] [address]-6318432.296.0844 Albumin 4.4 g/dL Normal 3.5-5.2 [facility] Comment on above: Performed By: #### L AB238 ####[place] [phone] Albumin/Globulin Ratio 1.7 (CALC) Normal 0.8-2.6 [facility] Comment on above: Performed By: #### L AB238 ####[place] [phone] Alkaline phosphatase (ALP) 67 U/L Normal 23-144 [facility] Comment on above: Performed By: #### L [id number] ####[place] [address]-7439107.296.0844 Aspartate aminotransferase (AST) 15 U/L Normal 0-46 [facility] Comment on above: Performed By: #### L [id number] ####[place] [address]-3349143.296.0844 Bilirubin (direct) 0.1 mg/dL Normal 0.0-0.4 [facility] Comment on above: Performed By: #### L [id number] ####[place] [address]-6664344.296.0844 Bilirubin (total) 0.3 mg/dL Normal 0.0-1.2 [facility] Comment on above: Performed By: #### L [id number] ####[place] [phone] BILIRUBIN,INDIRECT 0.2 MG/DL Normal 0.0-1.2 [facility] Comment on above: Performed By: #### L [id number] ####[place] [address]-6231541.296.0844 Globulin 2.6 GM/DL (CALC) Normal 1.9-3.6 [facility] [place] Comment on above: Performed By: #### L [id number] ####[place] [address]-9699840.296.0844 Protein 7.0 g/dL Normal 6.0-8.3 [facility] Comment on above: Performed By: #### L [id number] ####[place] [address]-8983712.296.0844 LIPASEon 04-03-2017 Lipase 17 U/L Normal 0-60 [facility] Comment on above: Performed By: #### L [id number] ####[place] [phone] SCREEN, URINEon HCG.beta subunit ( test) Ql (U) Negative Normal NEG [facility] [place] Comment on above: Performed By: #### L [id number] ####[place] [address]-4355364.296.0844 URINALYSIS MACROSCOPICon BILIRUBIN, URINE Negative Normal NEG [facility] Comment on above: Performed By: #### L [id number] ####[place] [phone] BLOOD, URINE Negative Normal NEG [facility] Comment on above: Performed By: #### L [id number] ####[place] [address]-8381199.296.0844 KETONE, URINE Negative Normal NEG [facility] Comment on above: Performed By: #### L [id number] ####[place] [phone] LEUKOCYTES, URINE Negative Normal NEG [facility] Comment on above: Performed By: #### L [id number] ####[place] [phone] NITRITES, URINE Negative Normal NEG [facility] Comment on above: Performed By: #### L [id number] ####[place] [address]-4831308.296.0844 PROTEIN, URINE Negative Normal NEG [facility] Comment on above: Performed By: #### L [id number] ####[place] [address]-1529710.296.0844 SPECIFIC GRAVITY, URINE 1.015 Normal 1.005-1.030 [facility] Comment on above: Performed By: #### L [id number] ####[place] [phone] Urine, appearance CLEAR Normal [facility] Comment on above: Performed By: #### L [id number] ####[place] [phone] Urine, color YELLOW Normal [facility] Comment on above: Performed By: #### L [id number] ####[place] [phone] Urine, glucose presence Negative Normal NEG [facility] Comment on above: Performed By: #### L [id number] ####[place] [phone] Urine, pH 7.0 [pH] Normal 4.5-8.0 [facility] Comment on above: Performed By: #### L [id number] ####[place] [phone] UROBILINOGEN, URINE NORMAL Normal NORM [facility] Comment on above: Performed By: #### L [id number] ####[place] [phone] BASIC METABOLIC PANELon 11-2 Anion gap 7 mmol/L Normal 5-15 [facility] Comment on above: Performed By: #### L [id number] ####[place], [place] [id number] BUN/Creatinine Ratio 16 . High -15 [facility] Comment on above: Performed By: #### L AB064 ####[place], [place] [phone] Calcium 8.5 mg/dL Low 8.7-10.2 [facility] Comment on above: Performed By: #### L AB064 ####[place], [place] [phone] Chloride 106 mmol/L Normal 98-109 [facility] Comment on above: Performed By: #### L AB064 ####[place], [place] [phone] CO2 25 mmol/L Normal 21-32 [facility] Comment on above: Performed By: #### L AB064 ####[place], [place] 58303122.420.5004 Creatinine 0.83 mg/dL Normal 0.2-1.3 [facility] Comment on above: Performed By: #### L AB064 ####[place], [place] 87255859.420.5004 eGFR (non-black) mL/min/{1.73_m2} Normal >60 At [facility] Comment on above: Performed By: #### L AB064 ####[place], [place] [phone] Glucose mass conc 95 mg/dL Normal 70-100 [facility] Comment on above: Performed By: #### L AB064 ####[place], [place] [phone] Potassium molar conc 3.7 mmol/L Normal 3.5-5.3 [facility] Comment on above: Performed By: #### L AB064 ####[place], [place] [phone] Sodium 138 mmol/L Normal 135-148 [facility] Comment on above: Performed By: #### L AB064 ####[place], [place] [phone] Urea nitrogen 13 mg/dL Normal 7-22 [facility] Comment on above: Performed By: #### L AB064 ####[place], [place] [phone] COMPLETE BLOOD COUNT WITH DI FFERENTIALon 02-27-2016 % NEUTROPHILS 64 % Normal 40-74 [facility] Comment on above: Performed By: #### L AB119 ####[place], [place] [phone] ABSOLUTE BASOPHIL 0.04 K/UL Normal 0-0.2 [facility] Comment on above: Performed By: #### L AB119 ####[place], [place] 54202375.420.5004 Basophils/100 WBC Auto (Bld) 0 % Normal 0-1.5 [facility] Comment on above: Performed By: #### L AB119 ####[place], [place] [phone] DIFFERENTIAL TYPE AUTOMATED Normal [facility] Comment on above: Performed By: #### L AB119 ####[place], [place] 46414140.420.5004 Eosinophils 0.18 10*3/uL Normal 0-0.8 [facility] Comment on above: Performed By: #### L AB119 ####[place], [place] 48408525.420.5004 Eosinophils/100 leukocytes 2 % Normal 0-7 [facility] Comment on above: Performed By: #### L AB119 ####[place], [place] 27263779.420.5004 Erythrocyte distribution width Auto Ratio (RBC) 12.2 % Normal 12-15 [facility] Comment on above: Performed By: #### L AB119 ####[place], [place] 39925808.420.5004 Erythrocytes (RBC) 4.35 M/UL Normal 4.2-5.4 [facility] Comment on above: Performed By: #### L AB119 ####[place], [place] [phone] Hematocrit (HCT) 40.2 % Normal 37-47 [facility] Comment on above: Performed By: #### L AB119 ####[place], [place] 75613603.420.5004 Hemoglobin mass conc (Bld) 13.9 g/dL Normal 12-16 [facility] Comment on above: Performed By: #### L AB119 ####[place], [place] 50750718.420.5004 Immature granulocytes #/vol (Bld) 0.01 10*3/uL Normal [facility] Comment on above: Performed By: #### L AB119 ####[place], [place] 56628968.420.5004 Immature granulocytes/100 WBC (Bld) 0 % Normal 0-3 [facility] Comment on above: Performed By: #### L AB119 ####[place], [place] 27997846.420.5004 Lymphocytes 2.45 10*3/uL Normal 0.9-5.2 [facility] Comment on above: Performed By: #### L AB119 ####[place], [place] 54761568.420.5004 Lymphocytes/100 leukocytes 27 % Normal 19-48 [facility] Comment on above: Performed By: #### L AB119 ####[place], [place] 01663714.420.5004 MCH 32.0 pg High 27-31 [facility] Comment on above: Performed By: #### L AB119 ####[place], [place] 04001762.420.5004 MCHC mass conc (RBC) 34.6 g/dL Normal 32-36 [facility] Comment on above: Performed By: #### L AB119 ####[place], [place] 88414832.420.5004 MCV 92.4 fL Normal 81-99 [facility] Comment on above: Performed By: #### L AB119 ####[place], [place] 91700324.420.5004 Monocytes 0.67 10*3/uL Normal 0.16-1 [facility] Comment on above: Performed By: #### L AB119 ####[place], [place] 84884452.420.5004 Monocytes/100 leukocytes 7 % Normal 3.4-9 [facility] Comment on above: Performed By: #### L AB119 ####[place], [place] 48985779.420.5004 Neutrophils 5.87 10*3/uL Normal 1.9-8 [facility] Comment on above: Performed By: #### L AB119 ####[place], [place] 91780923.420.5004 Platelet mean volume (PMV) 9.6 fL Normal 7.4-10.4 [facility] Comment on above: Performed By: #### L AB119 ####[place], [place] 98617108.420.5004 Platelets 246 10*3/uL Normal 130-400 [facility] Comment on above: Performed By: #### L AB119 ####[place], [place] 44522147.420.5004 WBC (Leukocytes) 9.22 10*3/uL Normal 4.8-10.8 [facility] Comment on above: Performed By: #### L AB119 ####[place], [place] 30966553.420.[address] AND CT PELVIS WIT H CONTRASTon 02-27-[address] PELVIS WITH CONTRAST [id number] CT ABDOMEN AND CT PELVIS WITH CONTRAST 02/26/2017 11:41 PMCLINICAL: Abdominal painTECHNIQUE: Contiguous transaxial images were obtained from lung bases to pubic symphysis following the administration of 100 mL Omnipaque 350 IV contrast without incident. Dose reduction: mA and/or kV are adjusted by automated exposure control software based on patient size.COMPARISON: CT abdomen pelvis June 30, 2015.FINDINGS: No significant lung base abnormalities are seen..The liver, spleen, gallbladder, pancreas, and adrenal glands are normal. Kidneys are normal size. Moderate right renal scarring. No hydronephrosis. No ureteral calculi are seen. Urinary bladder has a normal appearance.. Normal size retroverted uterus. 2.7 cm left ovarian cyst.Normal appendix. No significant large or small bowel abnormalities are seen. Stomach has a normal appearance.No pneumoperitoneum.No significant vascular abnormalities are seen. No abdominal or pelvic lymphadenopathy.No suspicious osseous abnormalities are seen.IMPRESSION:1. Normal appendix.2. 2.7 cm left ovarian cyst..There is no abdominal or pelvic lymphadenopathy. The abdominal aorta is patent and without aneurysm or dissection. There is no acute osseous abnormality.IMPRESSION : Workstation ID:[id number] reports that she has been experiencing abdominal pain for a few days, last BM was early this morning. Patient denies any urinary symptoms. rlq pain.No mx.No sx.100 ml omni 350,2ml/sec lac 20 g iv.dic [facility] CULTURE, BACTERIALon 017 CULTURE, BACTERIAL QUEST NUMERIC ORDER 395QUEST TEST DESCRIPTION URINE CULTUREQUEST ADDITIONAL INFO CLEAN CATCH MIDSTREAM URINECALL TO: [id number] CLEAN CATCH MIDSTREAM URINECULTURE RESULT REPORT (NOTE) TEST NAME RESULT FLAG UNITS REF RANGE ========= ====== ==== ===== ========= SOURCE URINE SPECIAL REQUEST NONE CULTURE RESULT SEE COMMENT RESULT COMMENT: SEE RESULTS BELOW NO GROWTH (<10,000 COLONIES/ML) OF URINARY TRACT PATHOGENS. VIKI INDICATIVE OF PROBABLE VAGINAL OR URETHRAL CONTAMINATION PRESENT IN SAMPLE. PLEASE CONTACT MICROBIOLOGY AT [phone] WITHIN NEXT 5 DAYS IF FURTHER INFORMATION CONCERNING THESE ORGANISMS IS DESIRED. FINAL REPORT DATE SEE COMMENT RESULT COMMENT: FINAL 03/01/2017 Test performed by [facility], [address] [place] [address]; Cloth Tearer: Josafat Bills MD [facility] Comment on above: Performed By: #### L [id number] ####[place], [place] [phone] SCREEN, URINEon HCG.beta subunit ( test) Ql (U) Negative Normal NEGATIVE [facility] Comment on above: Performed By: #### L [id number] ####[place], [place] 69821432.420.5004 URINALYSIS REFLEX TO CULTURE on 02-27-2017 BILIRUBIN, URINE Negative Normal NEGATIVE [facility] Comment on above: Performed By: #### L [id number] ####[place], [place] 32862975.420.5004 BLOOD, URINE Negative Normal NEGATIVE [facility] Comment on above: Performed By: #### L [id number] ####[place], [place] 13537075.420.5004 EPITHELIAL, URINE 16 /HPF High 0-5 [facility] Comment on above: Performed By: #### L [id number] ####[place], [place] 29099566.420.5004 KETONE, URINE Negative Normal NEGATIVE [facility] Comment on above: Performed By: #### L [id number] ####[place], [place] 71390378.420.5004 LEUKOCYTES, URINE LARGE Abnormal NEGATIVE [facility] Comment on above: Performed By: #### L [id number] ####[place], [place] 37749728.420.5004 NITRITES, URINE Negative Normal NEGATIVE [facility] Comment on above: Performed By: #### L [id number] ####[place], [place] 69736216.420.5004 PROTEIN, URINE Negative Normal NEGATIVE [facility] Comment on above: Performed By: #### L [id number] ####[place], [place] 97641683.420.5004 REFLEX CULTURE ORDERED BY LAB Normal [facility] Comment on above: Performed By: #### L [id number] ####[place], [place] 46262778.420.5004 SPECIFIC GRAVITY, URINE. 1.011 UNITS Normal 1.010-1.030 [facility] Comment on above: Performed By: #### L [id number] ####[place], [place] 65681814.420.5004 URINE MICROSCOPICS PERFORMED Normal [facility] Comment on above: Performed By: #### L [id number] ####[place], [place] 48653611.420.5004 Urine, clarity HAZY Normal [facility] Comment on above: Performed By: #### L [id number] ####[place], [place] 59857362.420.5004 Urine, color YELLOW Normal [facility] Comment on above: Performed By: #### L [id number] ####[place], [place] 39611666.420.5004 Urine, glucose presence Negative Normal NEGATIVE [facility] Comment on above: Performed By: #### L [id number] ####[place], [place] 83056291.420.5004 Urine, leukocytes in sedmiment 10 /[HPF] High 0-5 [facility] Comment on above: Result Comment: CULT URE ORDERED BY LAB Performed By: #### L [id number] ####[place], [place] 57376053.420.5004 Urine, pH 7.0 pH UNITS Normal 5-7.5 [facility] Comment on above: Performed By: #### L [id number] ####[place], [place] 90643202.420.5004 Urine, urobilinogen 4.0 MG/DL High <2.0 [facility] Comment on above: Performed By: #### L [id number] ####[place], [place] 56033407.420.5004 COMPLETE BLOOD COUNT WITH DI FFERENTIALon 10-27-2016 % NEUTROPHILS 73 % Normal 40-74 [facility] Comment on above: Performed By: #### L AB119 ####[place], [place] 50367605.420.5004 ABSOLUTE BASOPHIL 0.02 K/UL Normal 0-0.2 [facility] Comment on above: Performed By: #### L AB119 ####[place], [place] 98163840.420.5004 Basophils/100 WBC Auto (Bld) 0 % Normal 0-1.5 [facility] Comment on above: Performed By: #### L AB119 ####[place], [place] 34876164.420.5004 DIFFERENTIAL TYPE AUTOMATED Normal [facility] Comment on above: Performed By: #### L AB119 ####[place], [place] 71845157.420.5004 Eosinophils 0.03 10*3/uL Normal 0-0.8 [facility] Comment on above: Performed By: #### L AB119 ####[place], [place] 21829369.420.5004 Eosinophils/100 leukocytes 0 % Normal 0-7 [facility] Comment on above: Performed By: #### L AB119 ####[place], [place] 28365725.420.5004 Erythrocyte distribution width Auto Ratio (RBC) 12.1 % Normal 12-15 [facility] Comment on above: Performed By: #### L AB119 ####[place], [place] 14763185.420.5004 Erythrocytes (RBC) 4.26 M/UL Normal 4.2-5.4 [facility] Comment on above: Performed By: #### L AB119 ####[place], [place] 69887017.420.5004 Hematocrit (HCT) 38.9 % Normal 37-47 [facility] Comment on above: Performed By: #### L AB119 ####[place], [place] 25698135.420.5004 Hemoglobin mass conc (Bld) 13.5 g/dL Normal 12-16 [facility] Comment on above: Performed By: #### L AB119 ####[place], [place] 69137284.420.5004 Immature granulocytes #/vol (Bld) 0.01 10*3/uL Normal [facility] Comment on above: Performed By: #### L AB119 ####[place], [place] 74740947.420.5004 Immature granulocytes/100 WBC (Bld) 0 % Normal 0-3 [facility] Comment on above: Performed By: #### L AB119 ####[place], [place] 13348320.420.5004 Lymphocytes 1.14 10*3/uL Normal 0.9-5.2 [facility] Comment on above: Performed By: #### L AB119 ####[place], [place] 46430781.420.5004 Lymphocytes/100 leukocytes 16 % Low 19-48 [facility] Comment on above: Performed By: #### L AB119 ####[place], [place] 71865020.420.5004 MCH 31.7 pg High 27-31 [facility] Comment on above: Performed By: #### L AB119 ####[place], [place] 08535593.420.5004 MCHC mass conc (RBC) 34.7 g/dL Normal 32-36 [facility] Comment on above: Performed By: #### L AB119 ####[place], [place] 42058318.420.5004 MCV 91.3 fL Normal 81-99 [facility] Comment on above: Performed By: #### L AB119 ####[place], [place] 97107750.420.5004 Monocytes 0.77 10*3/uL Normal 0.16-1 [facility] Comment on above: Performed By: #### L AB119 ####[place], [place] 68029204.420.5004 Monocytes/100 leukocytes 11 % High 3.4-9 [facility] Comment on above: Performed By: #### L AB119 ####[place], [place] 08589843.420.5004 Neutrophils 5.16 10*3/uL Normal 1.9-8 [facility] Comment on above: Performed By: #### L AB119 ####[place], [place] 71725597.420.5004 Platelet mean volume (PMV) 9.3 fL Normal 7.4-10.4 [facility] Comment on above: Performed By: #### L AB119 ####[place], [place] 47397806.420.5004 Platelets 191 10*3/uL Normal 130-400 [facility] Comment on above: Performed By: #### L AB119 ####[place], [place] 76709515.420.5004 WBC (Leukocytes) 7.13 10*3/uL Normal 4.8-10.8 [facility] Comment on above: Performed By: #### L AB119 ####[place], [place] 95264981.420.5004 COMPREHENSIVE METABOLIC PANE Justyn 10-27-2016 Alanine aminotransferase (ALT) 10 U/L Low 15-63 [facility] Comment on above: Performed By: #### L AB120 ####[place], [place] 53383815.420.5004 Albumin 3.9 g/dL Normal 3.5-5.0 [facility] Comment on above: Performed By: #### L AB120 ####[place], [place] 80522320.420.5004 Albumin/Globulin Ratio 1.2 . Normal 1-2.2 At [facility] Comment on above: Performed By: #### L AB120 ####[place], [place] 08659150.420.5004 Alkaline phosphatase (ALP) 65 U/L Normal 45-131 [facility] Comment on above: Performed By: #### L AB120 ####[place], [place] 33367302.420.5004 Anion gap 7 mmol/L Normal 5-15 [facility] Comment on above: Performed By: #### L AB120 ####[place], [place] 01525415.420.5004 Aspartate aminotransferase (AST) 12 U/L Low 15-37 [facility] Comment on above: Performed By: #### L AB120 ####[place], [place] 73279175.420.5004 Bilirubin (total) 1.2 mg/dL High 0-1.0 [facility] Comment on above: Performed By: #### L AB120 ####[place], [place] 46914647.420.5004 BUN/Creatinine Ratio 11 . Normal 10-15 [facility] Comment on above: Performed By: #### L AB120 ####[place], [place] 52420641.420.5004 Calcium 8.9 mg/dL Normal 8.7-10.2 [facility] Comment on above: Performed By: #### L AB120 ####[place], [place] 92919522.420.5004 Chloride 104 mmol/L Normal 98-109 [facility] Comment on above: Performed By: #### L AB120 ####[place], [place] 97067323.420.5004 CO2 27 mmol/L Normal 21-32 [facility] Comment on above: Performed By: #### L AB120 ####[place], [place] 41332027.420.5004 Creatinine 0.83 mg/dL Normal 0.2-1.3 [facility] Comment on above: Performed By: #### L AB120 ####[place], [place] 80339907.420.5004 eGFR (non-black) mL/min/{1.73_m2} Normal >60 At [facility] Comment on above: Performed By: #### L AB120 ####[place], [place] 16093440.420.5004 Glucose mass conc 119 mg/dL High 70-100 [facility] Comment on above: Performed By: #### L AB120 ####[place], [place] 28956459.420.5004 Potassium molar conc 3.6 mmol/L Normal 3.5-5.3 [facility] Comment on above: Performed By: #### L AB120 ####[place], [place] 93905885.420.5004 Protein 7.1 g/dL Normal 6-8 [facility] Comment on above: Performed By: #### L AB120 ####[place], [place] 89088962.420.5004 Sodium 138 mmol/L Normal 135-148 [facility] Comment on above: Performed By: #### L AB120 ####[place], [place] 67753892.420.5004 Urea nitrogen 9 mg/dL Normal 7-22 [facility] Comment on above: Performed By: #### L AB120 ####[place], [place] 09670410.420.5004 LIPASEon 10-27-2016 Lipase 62 U/L Low 73-393 [facility] Comment on above: Performed By: #### L AB287 ####[place], [place] 77376722.420.5004 SCREEN, URINEon HCG.beta subunit ( test) Ql (U) Negative Normal NEGATIVE [facility] Comment on above: Performed By: #### L AB335 ####[place], [place] 90170397.420.5004 URINALYSISon 10-27-2016 BILIRUBIN, URINE Negative Normal NEGATIVE [facility] Comment on above: Performed By: #### L AB406 ####[place], [place] 38205544.420.5004 BLOOD, URINE LARGE Abnormal NEGATIVE [facility] Comment on above: Performed By: #### L AB406 ####[place], [place] 49020325.420.5004 EPITHELIAL, URINE 16 /HPF High 0-5 [facility] Comment on above: Performed By: #### L AB406 ####[place], [place] 38500721.420.5004 KETONE, URINE TRACE Abnormal NEGATIVE [facility] Comment on above: Performed By: #### L AB406 ####[place], [place] 62438988.420.5004 LEUKOCYTES, URINE MODERATE Abnormal NEGATIVE [facility] Comment on above: Performed By: #### L AB406 ####[place], [place] 75916711.420.5004 MUCUS, URINE SMALL Normal [facility] Comment on above: Performed By: #### L AB406 ####[place], [place] 79106442.420.5004 NITRITES, URINE Negative Normal NEGATIVE [facility] Comment on above: Performed By: #### L AB406 ####[place], [place] 30103031.420.5004 PROTEIN, URINE Negative Normal NEGATIVE [facility] Comment on above: Performed By: #### L AB406 ####[place], [place] 20935121.420.5004 SPECIFIC GRAVITY, URINE. 1.019 UNITS Normal 1.010-1.030 [facility] Comment on above: Performed By: #### L AB406 ####[place], [place] 39395263.420.5004 URINE MICROSCOPICS PERFORMED Normal [facility] Comment on above: Performed By: #### L AB406 ####[place], [place] 61159975.420.5004 Urine, bacteria in sediment PRESENT Abnormal NEGATIVE [facility] Comment on above: Performed By: #### L AB406 ####[place], [place] 72874852.420.5004 Urine, clarity HAZY Normal [facility] Comment on above: Performed By: #### L AB406 ####[place], [place] 54481788.420.5004 Urine, color YELLOW Normal [facility] Comment on above: Performed By: #### L AB406 ####[place], [place] 48959264.420.5004 Urine, erythrocytes in sediment by area 2 /[HPF] Normal 0-4 [facility] Comment on above: Performed By: #### L AB406 ####[place], [place] 36282987.420.5004 Urine, glucose presence Negative Normal NEGATIVE [facility] Comment on above: Performed By: #### L AB406 ####[place], [place] 47761090.420.5004 Urine, leukocytes in sedmiment 30 /[HPF] High 0-5 [facility] Comment on above: Performed By: #### L AB406 ####[place], [place] 17207512.420.5004 Urine, pH 6.0 pH UNITS Normal 5-7.5 [facility] Comment on above: Performed By: #### L AB406 ####[place], [place] 39027885.420.5004 Urine, urobilinogen 4.0 MG/DL High <2.0 [facility] Comment on above: Performed By: #### L AB406 ####[place], [place] 91962302.420.5004 US ABDOMEN SINGLE REGION OR QUADRANTon 10-27-2016 Cholesterol EXAM: US Abdomen.CLINICAL: Rule out cholecystitis and right hydronephrosis. Right abdominal and back pain for a couple days. History of right hydronephrosis with stent placement during 3 years ago.COMPARISON: 06/30/2015 CT abdomenTECHNIQUE: Grayscale and color Doppler evaluation of the right upper quadrant was performed.FINDINGS:Rig ht kidney measures 10.87 m longitudinally and there is no obstruction or visualized stone or lesion. Common bile duct measures 3.6 mm. Pancreas appears normal. Liver appears normal. Gallbladder appears normal without evidence of shadowing stone or sludge or pericholecystic fluid and wall thickness is normal at 1.6 mm.IMPRESSION:Normal ultrasound of the area right upper quadrant.Workstation ID:[id number] [facility] Vital Signs Date Time Vital Sign Value Performing Clinician Facility 12-14-2024 10:56-0400 Body height 165.1 cm Cristino Pocos DO Work Phone: [facility] 12-14-2024 10:56-0400 Body mass index (BMI) [Ratio] 28.62 kg/m2 Cristino Pocos DO Work Phone: [facility] 12-14-2024 10:56-0400 Body weight 78.02 kg Cristino Pocos DO Work Phone: [facility] 11-09-2024 08:58-0400 Body height 165.1 cm Cristino Pocos DO Work Phone: [facility] 11-09-2024 08:58-0400 Body mass index (BMI) [Ratio] 28.62 kg/m2 Cristino Pocos DO Work Phone: [facility] 11-09-2024 08:58-0400 Body weight 78.02 kg Cristino Pocos DO Work Phone: [facility] 09-24-2024 17:43-0400 Body mass index (BMI) [Ratio] 28.62 kg/m2 Melba Navarrete [employer]PERATOR Work Phone: [facility] 09-24-2024 17:43-0400 Body temperature 98.01 [degF] Melba Navarrete BUTTON BREAKER OPERATOR Work Phone: [facility] 09-24-2024 17:43-0400 Body weight 78.02 kg Melba Navarrete BUTTON BREAKER OPERATOR Work Phone: [facility] 09-24-2024 17:43-0400 Diastolic blood pressure 86 mm[Hg] Melba Navarrete BUTTON BREAKER OPERATOR Work Phone: [facility] 09-24-2024 17:43-0400 Heart rate 98 /min Melba Navarrete BUTTON BREAKER OPERATOR Work Phone: [facility] 09-24-2024 17:43-0400 Respiratory rate 20 /min Melba Navarrete BUTTON BREAKER OPERATOR Work Phone: [facility] 09-24-2024 17:43-0400 SaO2% (BldA) [Mass fraction] 99 % Melba Navarrete BUTTON BREAKER OPERATOR Work Phone: [facility] 09-24-2024 17:43-0400 Systolic blood pressure 118 mm[Hg] Melba Navarrete BUTTON BREAKER OPERATOR Work Phone: [facility] 03-08-2024 17:48-0500 Body mass index (BMI) [Ratio] 28.46 kg/m2 Marilynn Alejandre MD, IBCLC Work Phone: [facility] 03-08-2024 17:48-0500 Body temperature 98.01 [degF] Marilynn Alejandre MD, IBCLC Work Phone: [facility] 03-08-2024 17:48-0500 Body weight 77.56 kg Marilynn Alejandre MD, IBCLC Work Phone: [facility] 03-08-2024 17:48-0500 Diastolic blood pressure 86 mm[Hg] Marilynn Alejandre MD, IBCLC Work Phone: [facility] 03-08-2024 17:48-0500 Heart rate 105 /min Marilynn Alejandre MD, IBCLC Work Phone: [facility] 03-08-2024 17:48-0500 SaO2% (BldA) [Mass fraction] 98 % Marilynn Alejandre MD, IBCLC Work Phone: [facility] 03-08-2024 17:48-0500 Systolic blood pressure 118 mm[Hg] Marilynn Alejandre MD, IBCLC Work Phone: [facility] 05-02-2022 16:27-0500 Diastolic blood pressure 64 mm[Hg] PHYSICIAN NO [facility] 05-02-2022 16:27-0500 Heart rate 80 /min PHYSICIAN NO [facility] 05-02-2022 16:27-0500 Respiratory rate 16 /min PHYSICIAN NO [facility] 05-02-2022 16:27-0500 SaO2% (BldA) [Mass fraction] 99 % PHYSICIAN NO [facility] 05-02-2022 16:27-0500 Systolic blood pressure 109 mm[Hg] PHYSICIAN NO [facility] 05-02-2022 13:52-0500 Body temperature 98 [degF] PHYSICIAN NO [facility] 05-02-2022 13:48-0500 Body height 160.02 cm PHYSICIAN NO [facility] 05-02-2022 13:48-0500 Body weight 74.4 kg PHYSICIAN NO [facility] Encounters Encounter Date Encounter Type Care Provider Facility Start: 12-14-2024 End: 12-14-2024 Patient encounter procedure Cristino Rolon DO Work Phone: [facility] Comment on above: Displaced fracture o f middle phalanx of left middle finger, initial encounter for closed fracture (Primary Dx); Pain of finger of left hand Start: 12-14-2024 End: 12-14-2024 ambulatory ADDISON POCOS Not Available Start: 12-14-2024 End: 12-14-2024 ambulatory ADDISON POCOS Not Available Start: 11-23-2024 End: 11-23-2024 Bamboo flowsheet Jennifer Longoria OT Work Phone: [facility] Start: 11-23-2024 End: 11-23-2024 Bamboo flowsheet Jennifer Longoria OT [facility] Start: 11-23-2024 End: 11-23-2024 ambulatory Jennifer Longoria OT Work Phone: [facility] Comment on above: Left hand pain; Displaced fracture of middle phalanx of left middle finger, initial encounter for closed fracture; Closed displaced fracture of middle phalanx of finger with malunion, unspecified finger, subsequent encounter Start: 11-09-2024 End: 11-09-2024 ambulatory CRISTINO Charles ОЛЬГА Not Available Start: 11-09-2024 End: 11-09-2024 Patient encounter procedure Addison Ольга DO Work Phone: [facility] Comment on above: Left hand pain (Prim calderon Dx); Displaced fracture of middle phalanx of left middle finger, initial encounter for closed fracture; Closed displaced fracture of middle phalanx of finger with malunion, unspecified finger, subsequent encounter Start: 11-09-2024 End: 11-09-2024 ambulatory ADDISON ОЛЬГА Not Available Start: 09-24-2024 End: 09-24-2024 Office outpatient visit 25 minutes Melba Navarrete BUTTON BREAKER OPERATOR Work Phone: [facility] Comment on above: Injury of left hand, initial encounter (Primary Dx); Closed nondisplaced fracture of middle phalanx of left middle finger, initial encounter Start: 09-24-2024 End: 09-24-2024 ambulatory MELBA NAVARRETE Not Available Start: 03-08-2024 End: 03-08-2024 Office outpatient visit 25 minutes Marilynn Alejandre MD, IBCLC Work Phone: [facility] Comment on above: Pharyngitis, unspeci fied etiology (Primary Dx); Bronchitis Start: 03-08-2024 End: 03-08-2024 ambulatory MARILYNN ALEJANDRE Not Available Start: 06-08-2023 End: 06-08-2023 Emergency department patient visit Junior Araujo Facility:[facility] Start: 05-02-2022 End: 05-02-2022 Emergency department patient visit PHYSICIAN PUMA GALDAMEZ [facility] Work Phone: Start: 04-09-2020 Encounter for preprocedural laboratory examination WINDY ESPINOZA [facility] Start: 04-09-2020 Encounter for other preprocedural examination WINDY ESPINOZA [facility] Start: 04-09-2020 End: 04-09-[address] TRINITY SPANGLER Facility:[facility] Start: 04-05-2020 End: 04-06-[address] NONE LISTED REQUEST Facility:[facility] Start: 04-05-2020 End: 04-06-2020 Encounter for preprocedural laboratory examination DR NONE LISTED REQUEST Facility:[facility] Start: 04-02-2020 End: 04-03-[address] NONE LISTED REQUEST Facility:[facility] Start: 04-02-2020 End: 04-03-2020 Encounter for other preprocedural examination DR NONE LISTED REQUEST Facility: Start: 02-06-2020 End: 02-06-[address] NONE LISTED REQUEST Facility: Start: 01-30-2020 End: 01-31-[address] NONE LISTED REQUEST Facility: Start: 06-01-2017 End: 06-02-2017 Emergency department patient visit [facility] Start: 04-25-2017 End: 04-25-2017 Emergency department patient visit [facility] Start: 04-03-2017 End: 04-04-2017 Emergency department patient visit LEYDI RICHARD~[id number] [facility] Start: 02-27-2017 End: 02-27-2017 Emergency department patient visit [facility] Start: 02-13-2017 End: 02-13-2017 Emergency department patient visit [facility] Start: 10-27-2016 End: 10-27-2016 Emergency department patient visit GHANSHYAM Adhikari~[id number] [facility] Procedures Date Procedure Procedure Detail Performing Clinician Start: 12-14-2024 Radex fingr minimum 2 views Addison Pocos DO Work Phone: Start: 11-09-2024 Radex hand minimum 3 views Addison Pocos DO Work Phone: Start: 09-24-2024 ED SPLINTING / CASTI NG / STRAPPING Umm Sharma MA Start: 09-24-2024 Urine test visual color cmprsn geno Navarrete BUTTON BREAKER OPERATOR Work Phone: Start: 03-08-2024 Iadna streptococcus group a amplified probe tq Aristides Gould DO Work Phone: Start: 03-08-2024 STATUS COVID-19/FLU Ant ar Gould DO Work Phone: Start: 06-08-2023 Antibody screen Junior Ran mauri Comment on above: Order Comment: Speci men obtained @ 1044 QNS and hemolyzed. Notified Vanessa in ER @ 1134. MLG Result Comment: PERF ORMED BY: [facility] [address] [place] [address] PATHOLOGIST HAND WEAVER ALYX HURD M.D. Start: 05-02-2022 Diagnostic ultrasoun d of gravid uterus PHYSICIAN NO FAMILY Start: 05-02-2022 Transvaginal obstetr ic ultrasonography PHYSICIAN NO FAMILY Plan of Treatment Date Care Activity Detail Author Start: 12-14-2024 End: 12-14-2024 Patient encounter procedure 12/14/2024 11:00 AM EDT [facility] [address] [place] [phone] Cristino Rolon, DO [address] [place] [address] [facility] Start: 12-03-2024 Influenza vaccination Influenza Vacc ine (#1) [facility] Start: 11-29-2024 End: 11-29-2024 ambulatory 11/29/2024 12:00 PM EDT Treatment [facility] [address] [place] [phone] Jennifer Longoria, OT [address] [place] [address] [facility] Start: 11-23-2024 End: 11-23-2024 ambulatory 11/23/2024 1:00 PM EDT Evaluation [facility] [address] [place] [phone] Jennifer Longoria, OT [address] [place] [address] Left hand pain; Displaced fracture of middle phalanx of left middle finger, initial encounter for closed fracture; Closed displaced fracture of middle phalanx of finger with malunion, unspecified finger, subsequent encounter [facility] Comment on above: Left hand pain; Displaced fracture of middle phalanx of left middle finger, initial encounter for closed fracture; Closed displaced fracture of middle phalanx of finger with malunion, unspecified finger, subsequent encounter Start: 05-02-2022 Bacteria identified in Urine by Culture [facility] Patient Education Bleeding in Ea rly ED [facility] Work Phone: Patient referral [facility] Work Phone: XR Hand - left 3 Views XR hand 3 + views left Imaging Routine Left hand pain 11/09/2024 7:[address] [facility] Work Phone: Payers Date Payer Category Payer Self-pay [id number] 2019 Private Health Insurance [facility] MEDICAID [id number] 2019 Medicaid [id number] 1995 Unknown [id number] [id number]. 593 1995 Unknown [id number] [id number]. 593 1995 Unknown [id number] 2.16.840.1.024516.3.579.2. 593 1995 Unknown [id number] 2.16.840.1.222188.3.579.2. 593 1995 Unknown [id number] 2.16.840.1.256513.3.579.2. 593 1995 Unknown [id number] 2.16.840.1.434724.3.579.2. 1259 1995 Unknown [id number] 2.16.840.1.394027.3.579.2. 1259 1995 Unknown [id number] 2.16840.1.640411.3.579.2. 1259 1995 Unknown [id number] 2.16840.1.626071.3.579.2. 1259 1995 Unknown [id number] 2.16.840.1.345380.3.579.2. 1259 1995 Unknown [id number] [id number]. 1259 1995 Unknown [id number] 2.16840.1.330542.3.579.2. 1259 1995 Unknown [id number] [id number]. 1259 1959 Unknown [id number] Unknown [id number] [id number]. 531 Social History Date Type Detail Facility Start: 05-02-2022 Tobacco smoking status NHIS Smoker (finding) [facility] Start: 1995 Sex Assigned At Female F [facility] Tobacco smoking status IAIS Tobacco smoking consumption unknown [facility] Start: 1995 Sex assigned at Not on file [facility] Start: 11-09-2024 End: 12-14-2024 Gender identity Not on file [facility] Start: 11-09-2024 Tobacco smoking status NHIS Smokes tobacco daily [facility] History of tobacco use Cigarette Smoker [facility] Start: 11-09-2024 Tobacco use and exposure Smokeless tobacco non-user [facility] Start: 11-09-2024 End: 12-14-[address] [facility] Clinical Notes 02-06-2020 to 12-14-2024 Cristino Rolon, DO - 12/14/2024 11:00 AM EDEdmundo Longoria, OT - 11/23/2024 1:00 PM EDTMartha Painter - 11/09/2024 8:45 AM EDAntonio Navarrete NP - 09/24/2024 5:40 PM EDT Note Date & Type Note Facility 12-14-2024 History of Present illness Narrative Images from the original note were not included. Gina Burton is a 29 y.o. female presents with chief complaint of follow up left middle finger middle phalangeal fracture with malunion. HPI: Gina returns here today for repeat evaluation of her left middle finger. She did have one occupational therapy visit. It was very painful so she never went back. She does question whether it can be re-broken and put back together correctly. She denies any numbness or tingling. No fever or chills. She does remain fairly active. SUBJECTIVE: MEDICATIONS: No current outpatient medications ALLERGIES: No Known Allergies SURGICAL HISTORY: Past Surgical History: Procedure Laterality Date FOOT SURGERY Bilateral TONSILLECTOMY FAMILY HISTORY: No family history on file. SOCIAL HISTORY: Social History Tobacco Use Smoking status: Every Day Types: Cigarettes Smokeless tobacco: Never Depression: Not on file REVIEW OF SYMPTOMS: The review of systems, history and current medications list are all reviewed today. OBJECTIVE: Visit Vitals Ht 5' 5 Wt 172 lb BMI 28.62 kg/m OB Status Smoking Status Every Day BSA 1.89 m Physical Exam Her orthopedic exam here today reveals the angulatory deformity in the coronal plane. This is unchanged. There is no significant tenderness. She is markedly stiff. This also is unchanged overall. Still some swelling at this digit. X-rays of the left middle finger , a total of 3 views with permanent images saved to the record, show the malunion at the base of the middle phalanx. There is collapse causing the persistent ulnar angulation at the PIP. No new or interval changes noted. 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 The findings are discussed. This is clearly a malunion with angulatory deformity. We have recommended extensive therapy as a way to get the most out of this difficult situation. She is resistant to that. She feels that there is something that can be done. We would thus recommend referral to hand and upper extremity speciality surgery. She would like to go toward [place] for that. We will make these arrangements and will await further recommendation. Her return here with myself will be left only as needed as we really do not have anything further to offer this young individual. documented in this encounter [facility] 11-23-2024 History of Present illness Narrative Images from the original note were not included. Occupational Therapy Occupational Therapy Evaluation Visit Patient Name: Gina Burton Today's Date: 11/23/2024 Linked Episodes Type: Episode: Status: Noted: Resolved: Last update: Updated by: Occupational Therapy L MF injury Active 11/12/2024 11/23/2024 2:08 PM Jennifer Longoria OT Comments:Episode created from referral [id number] Visit number: 04/15 Subjective Interim History: 29 year old right hand dominant female presents with chief complaint of L MF stiffness and pain. DOI 09/23/2024 when her left middle finger became entangled in a rope while assisting someone with a rope swing. The injury involved a torquing mechanism of the finger. She sought evaluation at Urgent Care at [facility] on 09/24/2024, where she was given an Alumafoam splint. Imaging reportedly revealed no fracture, and she was advised to follow up with orthopedics if symptoms persisted. She assumed the injury was minor and did not follow up at that time.Subsequently, she sustained a second injury to the same finger around 09/27/2024, involving an axial load/jamming injury during showering. She was evaluated at [facility], where no imaging was taken. Her splint was reportedly adjusted but no further care was provided. She then did go to ortho on 11/09 d/t continued pain/ stiffness with ortho recommending therapy to optimize ROM and function. Per note the deformity will not change. Pain: Pain primarily reported to PIP joint of LMF. Pain up to 10/10 at worst, 4/10 at rest. Imaging:X-rays, AP, lateral and oblique of the left middle finger here today in comparison to films from the Urgent Care on 09-24-2024 in the PACS does show a basilar mid phalanx fracture with some impaction noted. She does have angulatory deformity on the order of 10 degrees in an ulnar direction at the proximal interphalangeal joint. The fracture is visualized on the lateral view and is intraarticular with a little bit of displacement. She does have some apparent dorsal lateral subluxation in addition. The joint is largely intact and located. Prior Level of Function: I with all self-care and functional mobility tasks. 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 Precautions: none Objective Observation: Visible deformity of the left middle finger at the PIP joint Mild swelling noted No skin breakdown or open wounds Protective posturing of the left middle finger observed Range of Motion (Left Middle Finger): (Compared to Right Hand) PIP Joint Flexion: Limited, approximately 35 (R: ~100 ) PIP Extension: full extension DIP and MCP: Mildly limited due to stiffness and guarding Strength Testing: Overall dye weigher strength and pinch strength on the left are reduced due to pain inhibition Right hand within functional limits L dye weigher : 35# R dye weigher: 85# Pain Assessment: Reports pain rated 4/10 at rest, up to 10/10 with movement Localized to the PIP joint, dorsally and laterally Edema: Mild diffuse edema present at the PIP joint Special Tests: Incomplete fist formation on the left approx 3cm from DPC Tenderness with palpation over PIP joint No signs of acute infection or systemic involvement PRWHE Pain Score: 35/100 PRWHE Functional Score: 86/100 Treatment: Education: HEP education with demonstration, Educated on Eval Findings and POC Manual Therapy: Passive ROM, Joint mobilization, Soft Tissue Mobilization, Myofascial Release, Muscle Energy Technique, Neural Mobilization, Myofascial Cupping, Dry Needling, IASTM, and Scar mobilization Therapeutic Exercise: Strength, Endurance, Flexibility, ROM, HEP, and Power Therapeutic Activity: Exercises to improve dynamic activities, functional tasks, functional mobility to return to prior activity level Neuromuscular re-education: Muscle Facilitation, Dynamic Stability, and Blood Flow Restriction Training (BFRT) Modalities: Heat, Ice, Electrical Stimulation, Ultrasound, Iontophoresis, and Fluidotherapy Today: Fluido x 10 minutes to left hand for pain management and to promote tissue warm-up in preparation for therapeutic exercises. Following the modality, the patient participated in supervised therapeutic exercises focused on maximizing active and passive range of motion (AROM/PROM) of the PIP joint of the left middle finger. Exercises included targeted stretching and joint mobilization techniques aimed at improving mobility and reducing stiffness. A home exercise program (HEP) was established consisting of daily range of motion and stretching exercises specific to the affected finger. A written handout outlining the HEP was provided to the patient. The patient verbalized understanding of the instructions and demonstrated the exercises appropriately. She was advised to perform the exercises two to three times daily and to monitor for any increase in pain or swelling. Assessment/Plan Goals (Short-Term: 4 Weeks): Reduce pain to <= 3/10 with activity and rest. Improve PIP joint flexion by 30 degrees. Improve hand function for basic ADLs (e.g., grooming, hygiene, typing). Initiate patient education on joint protection, splinting, and home program. Goals (Long-Term: 8-12 Weeks): Restore near-full functional ROM of left middle finger. PRWHE Pain Score <10/50 PRWHE Functional Score <15/100 Pt to make full composite fist pain free. PT to increase dye weigher strength by at least 20# in order to complete ADL tasks at discharge. Prevent further deformity and improve cosmetic appearance of finger. Functional deficits include impaired hand dexterity, reduced range of motion, decreased strength, and pain limiting occupational performance.Pt will benefit from skilled OT to address the above impairments for 2x/week for 6 weeks. I hereby deem this POC medically necessary. Please sign below. Date: documented in this encounter [facility] 11-09-2024 History of Present illness Narrative Images from the original note were not included. Gina Burton is a 29 y.o. female presents with chief complaint of left mid finger fracture. HPI: Gina is a 29-year-old right hand dominant white female who presents complaining of pain and difficulty as well as deformity about her left middle finger. She did have an injury on 09-23-2024. She was helping someone get on a rope swing. Her finger got caught up in the rope, thus torquing it. She wound up in the Urgent Care at [facility] on 09-24-2024. She was given an Alumafoam splint. She was then called back and told that there was no fracture and that if she still had pain and difficulty, she could certainly follow up with orthopedics. She at this point figured that nothing was wrong with the digit. She did subsequently have another injury. She states that she had a jamming type axial load to the digit while involved in showering. She did wind up going then to the [facility] on 09-27-2024. There, no x-ray was rendered. They did fix her splint for her apparently. She then had no further follow up or care. We do not have that available for review here today from the [facility]. She does present stating that she has continued to have pain. She has deformity. She does have marked stiffness. She did call for an opinion on this and is accommodated for the same here today. She has never had a problem with this digit. She reports no other issues to speak of. She is right hand dominant. SUBJECTIVE: MEDICATIONS: No current outpatient medications ALLERGIES: No Known Allergies SURGICAL HISTORY: Past Surgical History: Procedure Laterality Date FOOT SURGERY Bilateral TONSILLECTOMY FAMILY HISTORY: No family history on file. SOCIAL HISTORY: Social History Tobacco Use Smoking status: Every Day Types: Cigarettes Smokeless tobacco: Never Depression: Not on file REVIEW OF SYMPTOMS: The review of systems, history and current medications list are all reviewed today. OBJECTIVE: Visit Vitals Ht 5' 5 Wt 172 lb BMI 28.62 kg/m OB Status Smoking Status Every Day BSA 1.89 m Physical Exam Her orthopedic exam here today shows obvious angulatory deformity at the proximal interphalangeal joint. This is an ulnar direction. It is relatively fixed. She does have a lot of stiffness of the digit. There is no significant deformity otherwise. Gentle arc of motion is intact and her flexor and extensor tendon function does appear to be fully intact and functional. The remaining digits of the left hand are benign. Examination of the right hand reveals arc of motion without significant difficulty. No deformity. Neurocirculatory status is overall grossly intact. X-rays, AP, lateral and oblique of the left middle finger here today in comparison to films from the Urgent Care on 09-24-2024 in the PACS does show a basilar mid phalanx fracture with some impaction noted. She does have angulatory deformity on the order of 10 degrees in an ulnar direction at the proximal interphalangeal joint. The fracture is visualized on the lateral view and is intraarticular with a little bit of displacement. She does have some apparent dorsal lateral subluxation in addition. The joint is largely intact and located. The initial films show maybe a couple of degrees of angulatory deformity on the AP. No discernable fracture noted. This is very subtle overall. ASSESSMENT AND PLAN: Assessment/Plan Left middle finger mid phalanx fracture, intraarticular and basilar with malunion. The findings are discussed. At this point, this fracture is essentially into a malunion. She does have angulatory deformity, maybe a little bit of subluxation. We did discuss hand therapy to really optimize her motion and functionality of the digit, but that she would have the likelihood of continued and persistent deformity which would not change. Again, the goal would be more functionality then changing the deformity. We did discuss an opinion with hand and upper extremity surgery. We did outline they likely would recommend nothing further based upon the timing and fracture pattern morphology. She does voice understanding of this. Ultimately we will have her advance her activities. Her return here with myself will be in one month for an x-ray and recheck. We will get her set up with the hand therapy accordingly. She is discharged in stable condition. Cosigned by Cristino Rolon DO at 11/12/2024 12:51 PM EDT documented in this encounter [facility] 09-24-2024 History of Present illness Narrative HPI: Historian of HPI: patient Gina Burton is a 28 y.o. female who presents today to the Urgent Care with the following complaints and denials due to left hand/left 2, 3, 4 fingers which happened yesterday. Pt was helping a child get on a rope swing and the rope got caught on her finger and pulled it and threw her into the water. C/O Denies Symptom Comments [x] [] swelling [x] [] ecchymosis [] [x] erythema [] [x] tingling [x] [] numbness Middle finger [x] [] Pain Whole hand [x] [] Weakness [x] [] Decreased ROM [] [x] Trauma Additional Comments: pt has taken motrin OTC medication without relief Pt denies heat application to the affected area Pt denies cold application to the affected area ROS: A complete system ROS was performed and negative aside from the pertinent positives noted in the HPI and PE. Visit Vitals BP 118/86 (BP Location: Right leg, Patient Position: Sitting, BP Cuff Size: Small adult) Pulse 98 Temp 98 F (Temporal) Resp 20 Wt 172 lb SpO2 99% BMI 28.62 kg/m BSA 1.89 m Physical Exam Vitals reviewed. Constitutional: General: She is not in acute distress. Appearance: Normal appearance. HENT: Head: Normocephalic and atraumatic. Nose: Nose normal. Mouth/Throat: Mouth: Mucous membranes are moist. Pharynx: Oropharynx is clear. Eyes: Extraocular Movements: Extraocular movements intact. Conjunctiva/sclera: Conjunctivae normal. Pupils: Pupils are equal, round, and reactive to light. Cardiovascular: Rate and Rhythm: Normal rate and regular rhythm. Pulses: Normal pulses. Heart sounds: Normal heart sounds. Pulmonary: Effort: Pulmonary effort is normal. No respiratory distress. Breath sounds: No wheezing, rhonchi or rales. Musculoskeletal: Left wrist: Normal. Left hand: Swelling, tenderness and bony tenderness present. Decreased range of motion. Decreased strength. Decreased sensation of the median distribution. Cervical back: Normal range of motion and neck supple. Skin: General: Skin is warm and dry. Findings: No rash. Neurological: General: No focal deficit present. Mental Status: She is alert and oriented to person, place, and time. Psychiatric: Mood and Affect: Mood normal. 1. Injury of left hand, initial encounter (Primary) Pt was helping a child get on a rope swing and the rope got caught on her finger and pulled it and threw her into the water. On exam, middle finger is swollen and ecchymotic. She reports extreme pain with movement/palpation. Radial pulse palpable. Obtain x ray. She denied when initially asked. She had x ray done and it was noted under her chart review she missed an appointment at OB today with documentation of a + at home test on 09/16/24. Pt was asked again if any chance of and she stated no . Advised patient of what was coming up in chart and she admits she started bleeding so I thought it was a miscarriage . test here +. She was advised to call OB tmrw as soon as it opens and ask for blood work to confirm. She expressed an understanding. - XR hand 3+ views left; Future - POCT , urine manually resulted - Splint Application - Ambulatory referral to Orthopaedic Surgery; Future 2. Closed nondisplaced fracture of middle phalanx of left middle finger, initial encounter Pre-shepard + for acute fracture. Dx and tx discussed. Alumafoam splint applied and she is agreeable to ortho referral. - Ambulatory referral to Orthopaedic Surgery; Future FINDINGS: Soft tissue swelling is present, along dorsum of the left hand extending into the fingers mainly of the 3rd finger. The carpal bone alignment is anatomic; no intercarpal diastasis. No fracture. No osteonecrosis. No foreign body. Impression: Extensive soft tissue swelling of the left hand extending into the left 3rd finger. No acute underlying osseous/articular abnormality identified. See telephone encounter Associated Order(s): Splint Application Post-Procedure Diagnose(s): Injury of left hand, initial encounter Images from the original note were not included. Patient ID: Gina Burton is a 28 y.o. female. Splint Application Date/Time: 09/24/2024 7:03 PM Performed by: Umm Sharma MA Authorized by: Melba Navarrete NP Consent: Consent obtained: Verbal Consent given by: Patient Risks discussed: Discoloration, numbness, pain and swelling [place] protocol: Patient identity confirmed: Verbally with patient Pre-procedure details: Distal perfusion: distal pulses strong Procedure details: Location: Finger Finger location: L long finger Supplies: Aluminum splint Post-procedure details: Distal perfusion: distal pulses strong Procedure completion: Tolerated well, no immediate complications Comments: (1) 2inch rebecca wrapped used documented in this encounter [facility] 03-08-2024 History of Present illness Narrative Images from the original note were not included. [address] [facility] [facility] [place], [address] [place], [address] P: [phone] F: [phone] HPI Historian of HPI: patient Gina Burton is a 28 y.o. female who presents today to the Urgent Care with the following complaints and denials which have been present for 1 day(s) C/O Denies Symptom Comments [] [x] Runny Nose [x] [] Difficulty Swallowing [x] [] Sore Throat [x] [] Cough Irritation [x] [] Ear Pain [] [x] Fever [] [x] Chills [x] [] Nasal Congestion [x] [] Myalgia COOPER [] [x] Sinus Pain [] [x] Sinus Pressure Additional Comments: pt has taken nothing OTC medication without relief PHYSICAL EXAM BP 118/86 Pulse 105 Temp 98 F Wt 171 lb SpO2 98% BMI 28.46 kg/m Physical Exam Constitutional: General: She is not in acute distress. Appearance: Normal appearance. HENT: Head: Normocephalic and atraumatic. Right Ear: Tympanic membrane, ear canal and external ear normal. Left Ear: Tympanic membrane, ear canal and external ear normal. Nose: Congestion and rhinorrhea present. Mouth/Throat: Mouth: Mucous membranes are moist. Pharynx: Oropharynx is clear. No oropharyngeal exudate or posterior oropharyngeal erythema. Eyes: General: Right eye: No discharge. Left eye: No discharge. Conjunctiva/sclera: Conjunctivae normal. Cardiovascular: Rate and Rhythm: Normal rate and regular rhythm. Heart sounds: Normal heart sounds. No murmur heard. No friction rub. No gallop. Pulmonary: Effort: Pulmonary effort is normal. No respiratory distress. Breath sounds: Normal breath sounds. No wheezing, rhonchi or rales. Abdominal: General: Abdomen is flat. Palpations: Abdomen is soft. Tenderness: There is no abdominal tenderness. Musculoskeletal: General: Normal range of motion. Cervical back: Normal range of motion and neck supple. Lymphadenopathy: Cervical: No cervical adenopathy. Skin: General: Skin is warm and dry. Capillary Refill: Capillary refill takes less than 2 seconds. Findings: No rash. Neurological: General: No focal deficit present. Mental Status: She is alert. LABS / IMAGING Office Visit on 03/08/2024 Component Date Value Ref Range Status RESULT 03/08/2024 negative Negative Final FLU A 03/08/2024 negative Final FLU B 03/08/2024 negative Final SARS COV 2 RNA 03/08/2024 negative Final TREATMENT PLAN Assessment & Plan Pharyngitis, unspecified etiology In office Strep test negative. Physical exam is consistent with viral pharyngitis. No signs of dehydration. No current need for antibiotics. Recommend supportive care measures, including analgesics/antipyretics, warm beverages, honey, throat lozenges, ample hydration. Recommend staying home friends school/work for 24 hours after last fever. Reviewed return precautions. Orders: STREP DNA PROBE STATUS COVID-19/FLU Bronchitis Symptoms consistent with viral bronchitis. Normal lower airway auscultation and no significant sinus congestion to suggest superimposed bacterial infection. Counseled patient on pathophysiology and prognosis. Reviewed supportive care measures and return precautions. Rx sent for medrol dose pack and azithromycin to help with airway inflammation and cough. Reviewed potential side effects including insomnia, hyperglycemia, increased energy, mood fluctuations, fluid retention, weight gain. F/U PRN Orders: methylPREDNISolone (Medrol Dospak) 4 MG tablets; Follow schedule on package instructions azithromycin (Zithromax) 250 MG tablet; Take 2 tablets (500 mg) by mouth Daily for 1 day, THEN 1 tablet (250 mg) Daily for 4 days. Marilynn Alejandre MD, IBCLC [facility] documented in this encounter [facility] 04-09-2020 Note PROCEDURE: XR FOOT L T 2V HISTORY: pain COMPARISON: None. FINDINGS: BONES:First metatarsal bunionectomy and osteotomy with a single screw in place. No fracture or bone lesion. No significant degenerative joint disease. SOFT TISSUES:Mild dorsal soft tissue swelling. EFFUSION:None visible. OTHER: Negative. IMPRESSION: Surgical changes as described above. Electronically authenticated by: TRINITY SPANGLER Date: 2020-04-09 11:56 [facility] 04-09-2020 Note OPERATIVE NOTE OPERATION DATE: 04-09-20 ANESTHETIC:General. PREOPERATIVE DIAGNOSIS:Left HAV deformity. POSTOPERATIVE DIAGNOSIS:Same as above. PROCEDURE NAME:Left Nikolai bunionectomy with ORIF unrelated to prior procedure. PATHOLOGY:Bone, left first metatarsal. HEMOSTASIS:250 mmHg left ankle tourniquet for 36 minutes. ESTIMATED BLOOD LOSS: None. MATERIALS: 2-0 Vicryl, 4-0 Vicryl, 5-0 Monocryl with Steri-Strips and a 3.0 mm x 16 mm Nino titanium screw. INJECTABLES:10 mL of 0.5% Sensorcaine plain. PROCEDURE: The patient was brought to the OR and placed on the OR table in the supine position at which point in time the ankle tourniquet was placed around the patient's left ankle. Following IV sedation, the foot was scrubbed, prepped, and draped in the usual sterile manner. An Esmarch bandage was then utilized to exsanguinate the patient's left foot. Tourniquet was inflated to 250 mmHg for a total of 36 minutes. Attention was then directed to the first metatarsal phalangeal joint where a dorsal linear incision was made over the contour of the deformity. The incision was deepened through subcutaneous tissue using sharp and blunt dissection with care being taken to identify and tract all vital neurovascular structures. All bleeders were ligated and cauterized as necessary. Next, a dorsal linear capsulotomy was performed at the first metatarsal phalangeal joint with soft tissue structures reflected medially and laterally thus exposing the head of the first metatarsal. A sagittal bone saw was then utilized to remove the dorsal medial eminence and attention was then redirected to first metatarsal space where dissection was continued deep down to the level of the fibular sesamoid, which is freed of it's soft tissue attachments, proximally, distally, and laterally from the adductor tendon and also freed from the base of the lateral aspect of the proximal phalanx. Upon completion of the release, it was noted that the sesamoid apparatus floated into a more corrected medial position. Attention was then redirected to the first metatarsal head where an Nikolai type osteotomy was created at the metaphyseal region of the bone. The capsular fragment then was distracted and shifted laterally into a more corrected position and impacted on the first metatarsal shaft region. A temporary care haywire from the [employer] Asnis screw kit was inserted across the osteotomy site for temporary fixation at which point in time a 3.0 mm x 16 mm Holcomb Asnis titanium screw was inserted across the osteotomy site with good compression noted. The remaining k-wire was then removed. In addition, the dorsal medial bone eminence was also removed at that time too with a sagittal bone saw. The wound was flushed with copious amounts of sterile normal saline. The capsular structures were then reapproximated and coapted utilizing 3-0 Vicryl. The subcuticular tissue was reapproximated and coapted utilizing 4-0 Vicryl and the skin was then reapproximated and coapted utilizing 5-0 Monocryl in a subcuticular suture technique and reinforced with TinCoBen and Steri-Strips. Following the procedure, a total of 10 mL of 0.5% Sensorcaine plain was injected into the first metatarsal region and a Quezada type block. The tourniquet was then deflated and prompt hyperemic response was noted to digits 1-5 of the left foot. Sterile compressive dressing consistent of Xeroform, 4x4, ABD, Kerlix and Rebecca wrap applied. The patient tolerated the anesthesia and procedure well and left the OR for the Recovery Room with vital signs stable and vascular status intact. She will be sent home on the following oral and written postop instructions and with [facility] postoperative podiatry instruction sheet: 1. Keep dressing dry and intact. 2. The patient will remain nonweightbearing to the left foot. 3. The patient was given hospital number as well as office number if any problems should arise. Otherwise she is to return to the clinic in one week for first postoperative visit. 4. 5. 6. [facility] Signed and Approved by: WINDY ESPINOZA 7. 05/07/2020 13:13:00 1. 8. [facility] 02-06-2020 Note PROCEDURE: XR FOOT R T 2V COMPARISON: None. HISTORY: Reconstruction procedure FINDINGS: 8 seconds of fluoroscopy. 2 images. Images demonstrate transverse/oblique osteotomy across the distal diaphysis of the first metatarsal with placement of a single screw. Additionally a shave osteotomy is noted along the medial margin of the first metatarsal head and neck. Anatomic alignment is demonstrated. Postsurgical subcutaneous air. IMPRESSION: First metatarsal bunionectomy Electronically authenticated by: CRISTINO COOLEY Date: 2020-02-06 08:45 [facility] 02-06-2020 Note OPERATIVE NOTE OPERATION DATE: 02-06-20 ANESTHETIC:General. PREOPERATIVE DIAGNOSIS:Right HAV. POSTOPERATIVE DIAGNOSIS:Same. PROCEDURE NAME:Right Youngswick bunionectomy with screw fixation. HEMOSTASIS:250 mmHg right ankle tourniquet for 45 minutes. ESTIMATED BLOOD LOSS: None. MATERIALS: 3-0 Vicryl, 4-0 Vicryl, and 5-0 Monocryl with Steri-Strips. INJECTABLES: 10 mL OF 0.5% Sensorcaine plain. PROCEDURE: The patient was brought to the OR and placed on the OR table in the supine position at which point in time the ankle tourniquet was then placed around the patient's right ankle. Following IV sedation the foot was scrubbed, prepped, and draped in the usual sterile manner. An Esmarch bandage was then utilized to exsanguinate the patient's right foot and the tourniquet was inflated to 250 mmHg for a total of 45 minutes. Attention was then redirected to the first metatarsal phalangeal joint where a dorsal linear incision was made over the contour of the deformity. The incision was deepened through the subcutaneous tissues using sharp and blunt dissection with care being taken to identify and tract all vitam neurovascular structures. All bleeders were ligated and cauterized as necessary. At this time an inverted L-type capsulotomy was performed at the first metatarsal phalangeal joint with soft tissue structures reflected medially and laterally thus exposing the head of the first metatarsal. A sagittal bone saw was then utilized to remove the dorsal medial eminence and attention was redirected to the first metatarsal space where dissection was obtained deep down to the level of the fibular sesamoid which was freed of its attachments proximally, laterally, and distally. It was noted that the sesamoid apparatus was floated to a more corrected medial position at this time. It is also noted that the transvers head of the abductor tendon was also released from the base of the proximal phalanx, lateral aspect. Attention was then directed to the first metatarsal head where a Young's-Piyush type osteotomy was created Youngswick type osteotomy was created at the metadiaphyseal region of the bone. The capsular fragment was then distracted as well as the dorsal bone fragment was also removed from the field and the capsular fragment was distracted and mobilized and impacted laterally on to the first metatarsal shaft. A temporary K-wire from the [employer] screw set was inserted across the osteotomy site, using techniques of A AND O fixation, a 3.0 mm x 60 mg Holcomb Asnis screw was inserted across the osteotomy site. Attention was then redirected to the medial aspect of the first metatarsal head and a sagittal bone saw was utilized to remove the remaining bone to the medial aspect of the first metatarsal. The wound was then flushed with copious amounts of sterile normal saline. The capsular structures were reapproximated and coapted utilizing 3-0 Vicryl, subcuticular tissue were reapproximated with 4-0 Vicryl and the skin was reapproximated and coapted using 5-0 Monocryl in a subcuticular suture technique. TinCoBen and Steri-Strips were then applied. The C-arm fluoroscopy was utilized to confirm good screw placement and notable rectus digit was noted at that time to the right hallux. Following completion of the procedure, a total of 10 mL of 0.5% Sensorcaine plain were injected into the postoperative site and a sterile pressure dressing consisting of Xeroform, 4x4, ABD, Kerlix, and Rebecca wrap applied. The patient tolerated the anesthesia well and left the OR for Recovery Room with vital signs stable and vascular status intact. She is to be sent home with the following oral and written postop instructions when stabilized: 1. Keep dressing dry and intact. 2. The patient will be nonweightbearing to the right foot. 3. The patient was given [facility] postoperative care sheet including office and hospital number if any problems should arise. Otherwise she is to return to the clinic in one week for her first postoperative visit. [facility] Signed and Approved by: WINDY ESPINOZA 03/05/2020 07:24:00 [facility] Evaluation note No assessment inform ation available [facility] Work Phone: Evaluation note Diagnosis Pharyngitis, unspecified etiology- Primary Bronchitis Bronchitis, not specified as acute or chronic documented in this encounter [facility]* Diagnosis Injury of left hand, initial encounter- Primary Closed nondisplaced fracture of middle phalanx of left middle finger, initial encounter Injury of left hand, initial encounter documented [facility]* Diagnosis Left hand pain- Primary Pain in soft tissues of limb Displaced fracture of middle phalanx of left middle finger, initial encounter for closed fracture Closed displaced fracture of middle phalanx of finger with malunion, unspecified finger, subsequent encounter documented in this encounter [facility]* Diagnosis Left hand pain Pain in soft tissues of limb Displaced fracture of middle phalanx of left middle finger, initial encounter for closed fracture Closed displaced fracture of middle phalanx of finger with malunion, unspecified finger, subsequent encounter documented [facility] encounter [facility]* Diagnosis Displaced fracture of middle phalanx of left middle finger, initial encounter for closed fracture- Primary Pain of finger of left hand documented in this encounter [facility] Discharge instructions Additional Instructions You should have a repeat hCG blood test in 48 hours either by 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 or by the ER Return for new or worsening symptoms Follow-up with [facility] Work Phone: Reason for visit Narrative* Rehabilitation - Outpatient (Routine) - Authorized Specialty Diagnoses / Procedures Referred By Farooq ceron Referred To Contact Occupational Therapy / Physical Therapy Diagnoses Left hand pain Displaced fracture of middle phalanx of left middle finger, initial encounter for closed fracture Closed displaced fracture of middle phalanx of finger with malunion, unspecified finger, subsequent encounter Procedures MO OFFICE/OUTPATIENT NEW HIGH MDM 60 MINUTES Cristino Rolon DO [address] [place] [address] Phone: tel: fax: Jennifer Longoria, OT [address] [place] [address] Phone: tel: fax: Referral ID Status Reason Start Date Expiration Date Visits Requested Visits Authorized [id number] Authorized Consult and Treat 11/23/2024 01/23/2025 12 12 [facility] Summary Purpose Family History No Family History Records Found Relationship Condition Age at Onset Recorded Date/T natasha Not Specified No pertinent family history Unknown Advance Directives No Advanced Directives Records Found Advance Directive Response Recorded Date/ Time Advance Directives No September 08 5:33pm Chief Complaint and Reason for Visit Chief Complaint vaginal bleeding Additional Source Comments INFORMATION SOURCE (unrecogn ized section and content) DATE CREATED AUTHOR 09/23/2017 [facility] DATE CREATED AUTHOR AUTHOR'S ORGANIZ ATION 09/30/2017 [facility] DATE CREATED AUTHOR AUTHOR'S ORGANIZ ATION 01/02/2019 [facility] DATE CREATED AUTHOR AUTHOR'S ORGANIZ ATION 07/30/2020 [facility] DATE CREATED AUTHOR AUTHOR'S ORGANIZ ATION 07/07/2023 [facility] DATE CREATED AUTHOR AUTHOR'S ORGANIZ ATION 12/19/2024 [facility] EPIC Care Teams (unrecognized sec tion and content) Team Status: Inactive Member Role Status Dates PHYSICIAN NO FAMILY Primary Care Provider Active Kajal Mendoza PA-C Emergency Provider Active Team Status: Active Member Role Status Dates PHYSICIAN NO FAMILY Primary Care Provider Active [employer] Relationship Specialty Start Date End Date Aristides Gould DO [address] [place] [address] PCP - [facility] 07/03/24 [employer] Relationship Specialty Start Date End Date Aristides Gould DO [address] [place] [address] PCP - [facility] 07/03/24 [employer] Relationship Specialty Start Date End Date RiannakarunaAristidesDO [address] [place] [address] PCP - [facility] 07/03/24 Goals (unrecognized section and content) Goals may be documented in a n alternate section Reason for Visit (unrecogniz ed section and content) Reason Comments Pain Reason Comments Fracture FOR RECORDS PERTAINING TO PATIENTS WHO ARE OR HAVE BEEN ENROLLED IN A CHEMICAL DEPENDENCY/SUBSTANCEABUSE PROGRAM, SOME INFORMATION MAY BE OMITTED. This clinical summary was aggregated from multiple sources. Caution should be exercised in using it in the provision of clinical care. This summary normalizes information from multiple sources, and as a consequence, information in this document may materially change the coding, format and clinical context of patient data. In addition, data may be omitted in some cases. CLINICAL DECISIONS SHOULD BE BASED ON THE PRIMARY CLINICAL RECORDS. [employer] provides no warranty or guarantee of the accuracy or completeness of information in this document.
[2025-01-18 21:02] VITALS: BP 136/90; PULSE 106; TEMP 36.7; O2SAT 98; BMI 27.4
--- NOTE | 2025-01-18 21:13 | ED_ITS ---
HPI HPI - Extremity Injury (Upper) General Chief Complaint: Extremity Injury, Upper Stated Complaint: FELL OFF A HORSE HURT HER RIGHT ARM AND ELBOW Time Seen by Provider: 01/18/25 20:55 Source: patient Mode of arrival: walk-in Limitations: no limitations History of Present Illness HPI narrative: patient fell off of her horse just [employer]. States she fell onto her left side. Denies striking her head. She is complaining of intense pain of her right elbow. No rib cage, back or abdominal pain and denies pain of her lower extremities Related Data Previous Rx's ?Medication ?Instructions ?Recorded acetaminophen 300 mg-codeine 30 mg 1 tab PO Q6H PRN pa in 5 days #20 09/27/24 tablet tabs Allergies Allergy/AdvReac Type Severity Reaction Status Date / Time No Known Drug Allergies Allergy Verified 01/18/25 21:07 Opioid HPI Opioid Management Most Recent Pain and Opioid Data: Last Pain Scale 10 01/18/25, 21:31 Last ED Pain Assessment 01/18/25, 21:31 Last MAR Pain Assessment 01/18/25, 21:24 Review of Systems ROS Status of ROS 10 or more systems reviewed and unremark able except as noted in history and below PFSH PFSH Social History Little interest or pleasure in doing things: not at all Feeling down, depressed, or hopeless: not at all Exam Constitutional Vital Signs, click to edit/add: Last Vital Signs Temp 98.0 F 01/18/25 21:02 Pulse 94 H 01/18/25 22:38 Resp 18 01/18/25 22:38 BP 135/88 01/18/25 22:38 Pulse Ox 98 01/18/25 22:38 O2 Del Method Room Air 01/18/25 22:38 Common normals: average body habitus, oriented x3, no limitations, healthy appearing, alert and well nourished General appearance: in distress HENMT Common normals: normocephalic and head/scalp atraumatic Eye Common normals: EOMs intact bilaterally and conjunctivae normal Neck & C-Spine Common normals: full ROM and supple Chest Common normals: inspection of chest normal and palpation of chest normal Respiratory Common normals: normal respiratory effort, no retractions, no use of accessory muscles and clear to auscultation bilaterally Cardio Common normals: regular rate, regular rhythm, S1 normal heart sound and S2 normal heart sound GI Common normals: Normal to inspection, nondistended, normoactive bowel sounds present, soft to palpation and non-tender Extremity Other: no deformity of the right elbow. tender and patient resist any ROM of the elbow right shoulder and wrist exam unremarkable Neuro Common normals: oriented x3, CN's II-XII intact bilaterally, moves all extremities, no focal motor deficits and no sensory deficits noted Psych Appearance: grossly normal Course Vital Signs Vital signs: Vital Signs Temperature 98.0 F 01/18/25 21:02 Pulse Rate 106 H 01/18/25 21:02 Respiratory Rate 18 01/18/25 21:02 Blood Pressure 136/90 01/18/25 21:02 Pulse Oximetry 98 01/18/25 21:02 Oxygen Delivery Method Room Air 01/18/25 21:02 Temperature 98.0 F 01/18/25 21:02 Pulse Rate 94 H 01/18/25 22:38 Respiratory Rate 18 01/18/25 22:38 Blood Pressure 135/88 01/18/25 22:38 Pulse Oximetry 98 01/18/25 22:38 Oxygen Delivery Method Room Air 01/18/25 22:38 MDM - Extremity Injury (Upper) MDM Narrative Medical decision making narrative: patient fell off her horse onto her left side. Denies striking her head. No pain left side of her body but somehow injured right elbow. Exam without deformity of the right elbow. xray with fat pad sign but no obvious fractures. Patient placed in posterior elbow splint and sling and discharged home Discharge Plan Discharge Chief Complaint: Extremity Injury, Upper Clinical Impression: Injury of elbow, right Patient Disposition: Home, Self-Care Condition: Good Mode of Transportation: Private Vehicle Prescriptions / Home Meds: No Action acetaminophen-codeine 300-30 mg tablet 1 tab PO Q6H PRN (Reason: pain) 5 Days Qty: 20 0RF Print Language: Cambodian Instructions: Splint Care (ED), Arthralgia (ED) Additional Instructions: follow up with orthopedics next week for recheck Referrals: Physician,Non-Staff, MD [Primary Care Provider] - 1 week Discharge Date/Time: 01/18/25 22:42 Procedures ED Procedure Instructions Procedures Procedures: right elbow injury. size #4 fiber glass posterior elbow splint placed. Tolerated well. N/V WNL post procedure
[2025-01-18] MEDS: FENTANYL CITRATE/PF 100 MCG/2 ML VIAL IV (21:24)
--- NOTE | 2025-01-18 21:35 | XR_ITS ---
[facility] [id number] Patient Name: DENISE SMITH MRN: [id number] date: 1995 Sex: F Assigned Patient Location: ED.MAIN Current Patient Location: ED.MAIN Accession/Order Number: [id number] Exam Date: 01/18/2025 21:40 Report Date: 01/18/2025 22:28 At the request of: EMIL MANZANARES MD Procedure: XR elbow RT min 3V RIGHT ELBOW - 3 views CLINICAL HISTORY: injury COMPARISON: None FINDINGS: Questionable lucency involving the medial femoral condyle versus summation artifact. Please correlate with point tenderness. Otherwise, no displaced fracture. Soft tissues unremarkable. XR/XR elbow RT min 3V IMPRESSION: Summation artifact versus nondisplaced fracture medial epicondyle. Please correlate point tenderness. Impression dictated by: Vic Virk M.D. 01/18/2025 10:28 PM Dictation Location: [place] [id number] Electronically authenticated by: [id number] Y Date: 01/18/2025 22:28
[2025-01-18 22:38] VITALS: BP 135/88; PULSE 94; O2SAT 98
== END 2025-01-18 22:42 | disposition home or self-care (01) ==
PROVIDERS: Emergency Provider Internal Medicine
DX: S59.901A Unspecified injury of right elbow, initial encounter (principal); V80.010A Animal-rider injured by fall from or being thrown from horse in noncollision accident, initial encounter
CPT/HCPCS: 73080; 96374; 99284; J3010